=== PATIENT | female | born 1970 | race American Indian/Alaskan Native ===

== ENCOUNTER 2017-12-12 09:44 | Inpatient (IN) | payer BC ==
[2017-12-12] MEDS ORDERED: NACL 0.9% 1000 ML 1,000 ML IV ONE ×2 (10:01→12:56)
[2017-12-12 10:43] LABS: Hematocrit 40.5 % (30.3-42.9); Hemoglobin 13.3 gm/dl (10.1-14.3); Mean Corpuscular HGB Conc 33 % (30-34); Mean Corpuscular Hemoglobin 29 pg (28-32); Mean Corpuscular Volume 88 fl (79-97); Platelet Count 227 K/mm3 (140-440); Red Blood Count 4.63 M/mm3 (3.65-5.03); Red Cell Distribution Width 14.2 % (13.2-15.2)
[2017-12-12 11:06] LABS: Albumin 3.9 g/dL (3.9-5); Bilirubin,Direct 0.4 mg/dL (0-0.2)
[2017-12-12 11:07] LABS: Alanine Aminotransferase 9 units/L (7-56); BUN/Creatinine Ratio 16; Blood Urea Nitrogen 8 mg/dL (7-17); Calcium 9.8 mg/dL (8.4-10.2); Hemolysis Index 78
[2017-12-12 11:28] LABS: Band Neutrophils # (Manual) 0.5 K/mm3; Basophils % (Manual) 0 % (0.0-1.8); Eosinophils % (Manual) 0 % (0.0-4.3); Total Cells Counted 100
[2017-12-12 11:29] LABS: Anisocytosis 1+; Platelet Estimate Cons; Stomatocytes Few
[2017-12-12] MEDS ORDERED: ZOFRAN IV ONE (12:56)
[2017-12-12] MEDS ORDERED: MORPHINE IV ONE ×2 (12:56→16:34)
[2017-12-12] MEDS ORDERED: ZOSYN/NS 4.5GM/100ML 4.5 GM/100 ML VIAL IV SCH (13:00)
--- NOTE | 2017-12-12 13:01 | Emergency Department Report ---
ED Abdominal Pain HPI - General Chief Complaint: Abdominal Pain Stated Complaint: ABD PAIN Time Seen by Provider: 12/12/17 12:54 Source: patient, EMS Mode of arrival: Stretcher Limitations: No Limitations - History of Present Illness MD Complaint: abdominal pain -: Sudden Location: diffuse Radiation: chest Migration to: no migration Severity: severe Severity scale (0 -10): 10 Quality: aching, sharp Consistency: constant Improves With: nothing Worsens With: nothing Associated Symptoms: nausea, vomiting - Related Data Home Medications Medication Instructions Recorded Confirmed Last Taken Atorvastatin Calcium [Lipitor] 80 mg PO DAILY 12/12/17 12/12/17 Unknown Diltiazem HCl [Diltiazem 24Hr ER] 240 mg PO QDAY 12/12/17 12/12/17 Unknown Fenofibrate [Tricor] 145 mg PO QDAY 12/12/17 12/12/17 Unknown Allergies Allergy/AdvReac Type Severity Reaction Status Date / Time No Known Allergies Allergy Unverified 09/27/14 14:52 ED Review of Systems ROS: Stated complaint: ABD PAIN Other details as noted in HPI Comment: All other systems reviewed and negative Constitutional: denies: chills, fever Eyes: denies: eye pain, eye discharge ENT: denies: ear pain, dental pain Respiratory: denies: cough, orthopnea, shortness of breath Cardiovascular: chest pain. denies: palpitations, dyspnea on exertion, edema Endocrine: no symptoms reported Gastrointestinal: abdominal pain, nausea, vomiting. denies: diarrhea Genitourinary: denies: urgency, dysuria, frequency Musculoskeletal: denies: back pain, joint swelling Skin: denies: rash, lesions Neurological: denies: headache, weakness, numbness Psychiatric: denies: anxiety, depression Hematological/Lymphatic: denies: easy bleeding, easy bruising ED Past Medical Hx - Past Medical History Hx Hypertension: Yes Additional medical history: pancreatitis - Surgical History Additional Surgical History: Left knee surgery. 08/2014 - Social History Smoking Status: Current Every Day Smoker - Medications Home Medications: Home Medications Medication Instructions Recorded Confirmed Last Taken Type Atorvastatin Calcium [Lipitor] 80 mg PO DAILY 12/12/17 12/12/17 Unknown History Diltiazem HCl [Diltiazem 24Hr ER] 240 mg PO QDAY 12/12/17 12/12/17 Unknown History Fenofibrate [Tricor] 145 mg PO QDAY 12/12/17 12/12/17 Unknown History ED Physical Exam - General Limitations: No Limitations General appearance: alert, in distress - Head Head exam: Present: atraumatic, normocephalic, normal inspection - Eye Eye exam: Present: normal appearance, PERRL, EOMI Pupils: Present: normal accommodation - ENT ENT exam: Present: normal exam, normal orophraynx, mucous membranes moist - Neck Neck exam: Present: normal inspection, full ROM. Absent: tenderness - Respiratory Respiratory exam: Present: normal lung sounds bilaterally. Absent: respiratory distress, wheezes, rales, rhonchi - Cardiovascular Cardiovascular Exam: Present: normal rhythm, tachycardia, normal heart sounds - GI/Abdominal GI/Abdominal exam: Present: soft, distended, tenderness, guarding, rebound, hyperactive bowel sounds - Extremities Exam Extremities exam: Present: normal inspection, full ROM, normal capillary refill. Absent: tenderness - Back Exam Back exam: Present: normal inspection, full ROM. Absent: tenderness, CVA tenderness (L) - Neurological Exam Neurological exam: Present: alert, oriented X3, CN II-XII intact - Psychiatric Psychiatric exam: Present: normal affect, anxious - Skin Skin exam: Present: warm, dry, intact, normal color. 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 He will admit patient for further evaluation and management. ED Medical Decision Making - Lab Data Result diagrams: 12/13/17 04:40 12/13/17 04:40 - Radiology Data Radiology results: report reviewed, image reviewed - Medical Decision Making Diffused Abdominal Pain. Chest Pain. Nausea and Vomiting. Critical care attestation.: If time is entered above; I have spent that time in minutes in the direct care of this critically ill patient, excluding procedure time. ED Disposition Clinical Impression: Abdominal pain Qualifiers: Abdominal location: generalized Qualified Code(s): R10.84 - Generalized abdominal pain Leukocytosis (leucocytosis) Qualifiers: Leukocytosis type: unspecified Qualified Code(s): D72.829 - Elevated white blood cell count, unspecified Pancreatitis Qualifiers: Chronicity: acute Pancreatitis type: unspecified pancreatitis type Acute pancreatitis complication: unspecified Qualified Code(s): K85.90 - Acute pancreatitis without necrosis or infection, unspecified Disposition: 09 OP ADMIT IP TO THIS HOSP Is pt being admited?: Yes Does the pt Need Aspirin: Yes Condition: Stable
[2017-12-12 13:31] LABS: INR 0.99 (0.87-1.13)
--- NOTE | 2017-12-12 14:04 | XRay Report ---
AP CHEST: HISTORY: chest pain AP view of the chest demonstrates a normal mediastinal and cardiac contour with clear lungs and normal bony and soft tissue structures. IMPRESSION: Unremarkable AP chest.
[2017-12-12] MEDS ORDERED: BABY ASPIRIN PO ONE (14:10)
[2017-12-12] MEDS ORDERED: PROTONIX IV ONE ×2 (14:11→16:24)
[2017-12-12 14:34] LABS: Bacteria,Urine 1+ /HPF (Negative); Bilirubin,Urine NEG (Negative); Blood,Urine NEG (Negative); Color,Urine Amber (Yellow); Granular Casts,Urine 4 /LPF; Mucus,Urine 3+ /HPF; White Blood Cell Casts,Urine 4 /LPF
--- NOTE | 2017-12-12 15:44 | History and Physical Report ---
History of Present Illness Chief complaint: My stomach hurts, and my head hurts History of present illness: 47 YO Female with HTN, Chronic Pancreatitis, Nicotine Dependence, presents to ED for evaluation. Pt states that she has experienced Abdominal pain for the past 3 days with worsening symptoms over the past 2 days, as well as headache for the past 2 days. Pt states that abdominal pain is 10/10, diffuse, constant, worsened with eating, no alleviating factors. Pt acknowledges nausea and two episodes of vomiting. Pt also complains of 5/10 frontal headache. Pt denies fever, chills, CP, Palpitations, Trauma, BRBPR, hematemesis or recent ill contacts, or ingestion of food/water from new or different sources. Pt seen and evaluated in ED and found to have Acute Pancreatitis, Sepsis, and well as lactic acidosis. Pt admitted to medical floor. Past History Past Medical History: hypertension Past Surgical History: Other (knee surgery) Social history: , lives with family, smoking Family history: hypertension Medications and Allergies Allergies Allergy/AdvReac Type Severity Reaction Status Date / Time No Known Allergies Allergy Unverified 09/27/14 14:52 Home Medications Medication Instructions Recorded Confirmed Last Taken Type Atorvastatin Calcium [Lipitor] 80 mg PO DAILY 12/12/17 12/12/17 Unknown History Diltiazem HCl [Diltiazem 24Hr ER] 240 mg PO QDAY 12/12/17 12/12/17 Unknown History Fenofibrate [Tricor] 145 mg PO QDAY 12/12/17 12/12/17 Unknown History Active Meds: Active Medications Piperacillin Sod/Tazobactam Sod (Zosyn/Ns 4.5gm/100ml) 4.5 gm in 100 mls @ 200 mls/hr IV ONCE LEELEE Review of Systems Constitutional: no weight loss, no weight gain, no fever, no chills Ears, nose, mouth and throat: no ear pain, no ear discharge, no decreased hearing Breasts: no change in shape, no swelling, no mass Cardiovascular: no chest pain, no palpitations, no syncope, no lightheadedness Respiratory: no cough, no cough with sputum, no excessive sputum, no hemoptysis Gastrointestinal: abdominal pain, nausea, vomiting, no constipation, no melena, no hematochezia, no loss of appetite, no early satiety Genitourinary Female: no pelvic pain, no flank pain, no menorrhagia, no dysuria , no urinary frequency, no urgency Rectal: no pain, no incontinence, no bleeding Musculoskeletal: no neck stiffness, no neck pain, no shooting arm pain, no arm numbness/tingling Integumentary: no pruritis, no sores, no jaundice, no boils Neurological: no transient paralysis, no weakness, no tingling, no tremors Psychiatric: no memory loss, no sleep disturbances, no hypersomnia, no change in appetite, no depression, no anhedonia Endocrine: no cold intolerance, no heat intolerance, no excessive thirst, no polydipsia, no polyuria Hematologic/Lymphatic: no easy bruising, no easy bleeding Allergic/Immunologic: no urticaria, no allergic rhinitis, no wheezing, no persistent infections Exam - Constitutional Vitals: Temp Pulse Resp BP Pulse Ox 98.1 F 100 H 18 154/108 100 12/12/17 09:56 12/12/17 09:56 12/12/17 13:42 12/12/17 09:56 12/12/17 09:56 General appearance: Present: mild distress - EENT Eyes: Present: PERRL ENT: hearing intact, clear oral mucosa, poor dentition - Neck Neck: Present: supple, normal ROM - Respiratory Respiratory effort: normal Respiratory: bilateral: CTA - Cardiovascular Rhythm: other (tachycardia) Heart Sounds: Present: S1 & S2. Absent: rub, click - Extremities Extremities: pulses symmetrical, No edema Peripheral Pulses: abnormal (capillary refill greater than 3.6 seconds) - Abdominal General gastrointestinal: Present: soft, tender, normal bowel sounds. Absent: mass Localized gastrointestinal: tender: diffuse Female genitourinary: Present: normal - Integumentary Integumentary: Present: clear, dry, clammy, decreased turgor - Musculoskeletal Musculoskeletal: generalized weakness - Psychiatric Psychiatric: appropriate mood/affect, intact judgment & insight - Neurologic Neurologic: CNII-XII intact, moves all extremities Results - Labs CBC & Chem 7: 12/13/17 04:40 12/13/17 04:40 Labs: Abnormal lab results 12/12/17 12/12/17 12/12/17 Range/Units 10:08 10:08 10:08 WBC 17.4 H (4.5-11.0) K/mm3 Seg Neuts % (Manual) 85.0 H (40.0-70.0) % Lymphocytes % (Manual) 10.0 L (13.4-35.0) % Seg Neutrophils # Man 14.8 H (1.8-7.7) K/mm3 Sodium 133 L (137-145) mmol/L Chloride 92.5 L (98-107) mmol/L Carbon Dioxide 20 L (22-30) mmol/L Creatinine 0.5 L (0.7-1.2) mg/dL Glucose 116 H (65-100) mg/dL Direct Bilirubin 0.4 H (0-0.2) mg/dL Total Protein 8.4 H (6.3-8.2) g/dL Lipase (13-60) units/L Ur Specific [place] (1.003-1.030) Urine WBC (Auto) (0.0-6.0) /HPF 12/12/17 12/12/17 Range/Units 13:08 13:30 WBC (4.5-11.0) K/mm3 Seg Neuts % (Manual) (40.0-70.0) % Lymphocytes % (Manual) (13.4-35.0) % Seg Neutrophils # Man (1.8-7.7) K/mm3 Sodium (137-145) mmol/L Chloride (98-107) mmol/L Carbon Dioxide (22-30) mmol/L Creatinine (0.7-1.2) mg/dL Glucose (65-100) mg/dL Direct Bilirubin (0-0.2) mg/dL Total Protein (6.3-8.2) g/dL Lipase 76 H (13-60) units/L Ur Specific [place] 1.034 H (1.003-1.030) Urine WBC (Auto) 10.0 H (0.0-6.0) /HPF Assessment and Plan - Patient Problems (1) Sepsis Current Visit: Yes Status: Acute Qualifiers: Sepsis type: sepsis due to unspecified organism Qualified Code(s): A41.9 - Sepsis, unspecified organism Plan to address problem: Sepsis protocol, IV antibiotic therapy, serial lactic acid, monitor uop q shift , blood cultures, urinalysis, chest x ray (2) Acidosis Current Visit: Yes Status: Acute Plan to address problem: Serial lactic acid, IVF resuscitation, treat sepsis (3) Nicotine dependence unspecified, with withdrawal Current Visit: Yes Status: Acute Qualifiers: Nicotine product type: cigarettes Qualified Code(s): F17.213 - Nicotine dependence, cigarettes, with withdrawal Plan to address problem: Smoking cessation counseling (4) Pancreatitis Current Visit: Yes Status: Acute Qualifiers: Chronicity: acute Pancreatitis type: unspecified pancreatitis type Acute pancreatitis complication: unspecified Qualified Code(s): K85.90 - Acute pancreatitis without necrosis or infection, unspecified Plan to address problem: CT Abdomen Pelvis, IVF resuscitation, empiric antibiotic therapy for possible early necrosis due to involvement of mesentery on CT abdomen and pelvis, bowel rest, pain control (5) DVT prophylaxis Current Visit: Yes Status: Acute Plan to address problem: SCD to BLE while in bed
[2017-12-12] MEDS ORDERED: SODIUM CHLORIDE FLUSH SYRINGE 10 ML IV PRN (15:45)
[2017-12-12] MEDS ORDERED: NACL 0.9% 1000 ML IV ONE (15:45)
[2017-12-12] MEDS: MORPHINE IV PRN ×2 (16:20→20:53)
--- NOTE | 2017-12-12 16:34 | Cat Scan Report ---
FINAL REPORT EXAM: CT HEAD/BRAIN WO CON HISTORY: headache TECHNIQUE: 2.5 millimeter axial images from the skullbase to the vertex. Comparison: None FINDINGS: Visualization of detail in portions of the brain is somewhat limited by motion artifact. There is no definite evidence of an acute intracranial process nor intracranial hemorrhage and no evidence of significant mass effect. However, subtle areas of edema in portions of the brain could be missed due to motion artifact. The ventricles are normal size. The visualized portions of the orbits, paranasal and mastoid sinuses are unremarkable. The bony structures are unremarkable in appearance. IMPRESSION: 1. Study degraded by motion artifact. 2. No definite evidence of an acute intracranial process. However, subtle areas of edema in portions of the brain could be missed due to artifact. If further imaging is required, MRI may be helpful.
--- NOTE | 2017-12-12 17:12 | Cat Scan Report ---
FINAL REPORT PROCEDURE: CT ABDOMEN PELVIS W CON TECHNIQUE: Computerized axial tomography of the abdomen and pelvis was performed after the IV injection of iodinated nonionic contrast. HISTORY: abdominal pain COMPARISON: No prior studies are available for comparison. FINDINGS: Lower Lung carroll: Small amount of dependent atelectasis visualized. No effusions are seen. Upper Abdomen: The liver, the gallbladder, the left adrenal gland in the spleen are unremarkable. There is a small nodular density in the right adrenal gland measuring 1.5 x 0.9 centimeters. This is indeterminate. This nodule does enhance however on the short delay still enhances to 62 Hounsfield units. Prior to the delayed the nodule enhanced to 94 Hounsfield units. Pancreatic head appears mildly diffusely edematous. No masses are seen. There is diffuse inflammatory change surrounding the pancreatic head with moderate amount of edema seen extending into the root of the mesentery, to the right and inferiorly to the pancreatic head along the anterior aspect of Gerota's fascia. Perinephric edematous change visualized bilaterally. Right side greater than left. Small amount of ascites is collected in the lower pelvis posteriorly. The appearance is consistent with acute pancreatitis. Recommend correlation with serum amylase and lipase levels. Small amount of ascites is collected along the edges of the spleen and inferior aspect of the liver. There is also mild edematous change projecting anterior aspect of left side of Gerota's fascia. Kidneys, Ureters and Urinary bladder: Subcentimeter, the 7.4 millimeter renal cortical cyst visualized on the right posteriorly. The kidneys, the ureters and urinary bladder otherwise are unremarkable. Retroperitoneum: Atherosclerotic changes are seen in the abdominal aorta and iliac arteries.. No aneurysm is visualized. Nonspecific subcentimeter lymph nodes are seen in the retroperitoneum. No pathologically enlarged lymph nodes are identified. Bowel: Mild diverticulosis seen in the left side of the colon and transverse colon without evidence of diverticulitis. Few diverticula are scattered in the right side of the colon as well. Normal-appearing appendix is seen in the right lower quadrant although partially surrounded by the inflammatory process extending from the pancreas. No evidence of bowel obstruction. No free intraperitoneal gas is seen. Reproductive organs: Uterus is unremarkable. Nonspecific 3.7 centimeters cystic area visualized in the left ovary. Slightly irregular cyst visualized in the right ovary measuring 2 centimeters. This may represent recently ruptured follicle. Other: No acute bony abnormalities are identified. IMPRESSION: Diffuse inflammatory process in the abdomen centered around the pancreas extending into the mesentery as described as well as a small amount of ascites. The appearance highly suggestive of acute pancreatitis. Recommend correlation with serum amylase and lipase levels. No pancreatic masses or pseudocysts visualized. Indeterminate nodular density right adrenal gland measuring 1.5 x 0.9 centimeters. This could represent an adenoma although not confirmed with this exam. Other masses are not excluded. Consider follow-up MRI for further evaluation. Small renal cortical cyst visualize right kidney. Mild colonic diverticulosis without evidence of diverticulitis. Nonspecific cystic change visualized in the ovaries. On the left there is a cyst measuring up to 3.7 centimeters. Consider follow-up exam in 6-8 weeks to ensure this resolves and there are no persistent cystic lesions present..
[2017-12-12] MEDS ORDERED: NACL 0.9% 1000 ML 1,000 ML ONE (17:56)
[2017-12-12] MEDS ORDERED: VANCOMYCIN 1,500 MG in NACL 0.9% 500 ML 500 ML IV ONE (18:00)
[2017-12-12] MEDS: TYLENOL PO PRN (18:53)
[2017-12-12] MEDS ORDERED: NACL 0.45% 2,000 ML IV SCH (21:00)
[2017-12-12] MEDS: ZOSYN/NS 4.5GM/100ML 4.5 GM/100 ML VIAL IV SCH (21:40)
[2017-12-12] MEDS: SODIUM CHLORIDE FLUSH SYRINGE 10 ML IV SCH (21:40)
[2017-12-12] MEDS ORDERED: FLAGYL 500 MG/100 ML 500 MG/100 ML BAG IV SCH (22:00)
[2017-12-12] MEDS: PEPCID IV SCH (22:06)
[2017-12-12] MEDS: FLAGYL PO SCH (22:13)
[2017-12-13] MEDS: MORPHINE IV PRN ×2 (03:44→09:51)
[2017-12-13] MEDS: NACL 0.45% 1000 ML 1,000 ML IV SCH ×2 (03:45→15:22)
[2017-12-13 05:45] LABS: Hematocrit 31.2 % (30.3-42.9); Hemoglobin 10.4 gm/dl (10.1-14.3); Mean Corpuscular HGB Conc 33 % (30-34); Mean Corpuscular Hemoglobin 29 pg (28-32); Mean Corpuscular Volume 87 fl (79-97); Platelet Count 171 K/mm3 (140-440); Red Blood Count 3.59 M/mm3 (3.65-5.03); Red Cell Distribution Width 13.7 % (13.2-15.2)
[2017-12-13] MEDS: FLAGYL PO SCH ×3 (05:47→21:47)
[2017-12-13] MEDS: ZOSYN/NS 4.5GM/100ML 4.5 GM/100 ML VIAL IV SCH ×3 (05:56→21:46)
[2017-12-13 06:08] LABS: BUN/Creatinine Ratio 12; Blood Urea Nitrogen 6 mg/dL (7-17)
[2017-12-13 06:09] LABS: Calcium 8.7 mg/dL (8.4-10.2); Hemolysis Index 5
[2017-12-13 07:13] LABS: Band Neutrophils # (Manual) 3.3 K/mm3; Basophils % (Manual) 0 % (0.0-1.8); Total Cells Counted 100
[2017-12-13 07:15] LABS: Anisocytosis 1+; Platelet Estimate Consistent w Auto; Stomatocytes Few
[2017-12-13] MEDS ORDERED: MAGNESIUM SULFATE IV ONE (08:24)
--- NOTE | 2017-12-13 08:24 | Progress Note ---
Assessment and Plan Assessment and plan: 47 YO Female with HTN, Chronic Pancreatitis, Nicotine Dependence, presents to ED for evaluation. Pt states that she has experienced Abdominal pain for the past 3 days with worsening symptoms over the past 2 days, as well as headache for the past 2 days. Pt states that abdominal pain is 10/10, diffuse, constant, worsened with eating, no alleviating factors. Pt acknowledges nausea and two episodes of vomiting. Pt also complains of 5/10 frontal headache. Pt denies fever, chills, CP, Palpitations, Trauma, BRBPR, hematemesis or recent ill contacts, or ingestion of food/water from new or different sources. Pt seen and evaluated in ED and found to have Acute Pancreatitis, Sepsis, and well as lactic acidosis. Pt admitted to medical floor. Sepsis Acute Cystitis Acute Pancreatitis Peritoneal irratation secondary to acute pancreatitis Tobacco dependance with Withdrawal EtOH abuse Metabolic acidosis- Improved Headache- now resolved plan * Continue supportive care, pain control * urine culture * Continue abx * Abdominal Ultrasound * Replace electrolytes * Consult GI * 15 MINS OF COUNSELLING FOR TOBACCO CESSATION and also on alcohol use * DVT/GI prophy History Interval history: Patient seen and examined this morning still with abdominal pain with forced him morphine is not helpful. Rates pain at 10 over 10 in intensity intermittent in nature. Otherwise no other adverse event reported by nursing staff. Hospitalist Physical - Physical exam Narrative exam: VITAL SIGNS: Reviewed. GENERAL: The patient appeared well nourished and normally developed. Vital signs as documented. HEAD: No signs of head trauma. EYES: Pupils are equal. Extraocular motions intact. EARS: Hearing grossly intact. MOUTH: Oropharynx is normal. NECK: No adenopathy, no JVD. CHEST: Chest with clear breath sounds bilaterally. No wheezes, rales, or rhonchi. CARDIAC: Regular rate and rhythm. S1 and S2, without murmurs, gallops, or rubs. VASCULAR: No Edema. Peripheral pulses normal and equal in all extremities. ABDOMEN: Soft, tender. No sign of distention. No rebound or guarding, and no masses palpated. Bowel Sounds normal. MUSCULOSKELETAL: Good range of motion of all major joints. Extremities without clubbing, cyanosis or edema. NEUROLOGIC EXAM: Alert and oriented x 3. No focal sensory or strength deficits. Speech normal. Follows commands. PSYCHIATRIC: Mood normal. SKIN: No rash or lesions. - Constitutional Vitals: Temp Pulse Resp BP Pulse Ox 98.5 F 97 H 17 135/72 100 12/13/17 00:46 12/13/17 00:46 12/13/17 04:14 12/13/17 00:46 12/13/17 00:46 General appearance: Present: mild distress Results - Labs CBC & Chem 7: 12/13/17 04:40 12/13/17 04:40 Labs: Laboratory Last Values WBC 13.7 K/mm3 (4.5-11.0) H 12/13/17 04:40 RBC 3.59 M/mm3 (3.65-5.03) L 12/13/17 04:40 Hgb 10.4 gm/dl (10.1-14.3) 12/13/17 04:40 Hct 31.2 % (30.3-42.9) D 12/13/17 04:40 MCV 87 fl (79-97) 12/13/17 04:40 MCH 29 pg (28-32) 12/13/17 04:40 MCHC 33 % (30-34) 12/13/17 04:40 RDW 13.7 % (13.2-15.2) 12/13/17 04:40 Plt Count 171 K/mm3 (140-440) 12/13/17 04:40 Add Manual Diff Complete 12/13/17 04:40 Total Counted 100 12/13/17 04:40 Seg Neuts % (Manual) 48.0 % (40.0-70.0) 12/13/17 04:40 Band Neutrophils % 24.0 % 12/13/17 04:40 Lymphocytes % (Manual) 16.0 % (13.4-35.0) 12/13/17 04:40 Reactive Lymphs % (Man) 0 % 12/13/17 04:40 Monocytes % (Manual) 10.0 % (0.0-7.3) H 12/13/17 04:40 Eosinophils % (Manual) 2.0 % (0.0-4.3) 12/13/17 04:40 Basophils % (Manual) 0 % (0.0-1.8) 12/13/17 04:40 Metamyelocytes % 0 % 12/13/17 04:40 Myelocytes % 0 % 12/13/17 04:40 Promyelocytes % 0 % 12/13/17 04:40 Blast Cells % 0 % 12/13/17 04:40 Nucleated RBC % Not Reportable 12/13/17 04:40 Seg Neutrophils # Man 6.6 K/mm3 (1.8-7.7) 12/13/17 04:40 Band Neutrophils # 3.3 K/mm3 12/13/17 04:40 Lymphocytes # (Manual) 2.2 K/mm3 (1.2-5.4) 12/13/17 04:40 Abs React Lymphs (Man) 0.0 K/mm3 12/13/17 04:40 Monocytes # (Manual) 1.4 K/mm3 (0.0-0.8) H 12/13/17 04:40 Eosinophils # (Manual) 0.3 K/mm3 (0.0-0.4) 12/13/17 04:40 Basophils # (Manual) 0.0 K/mm3 (0.0-0.1) 12/13/17 04:40 Metamyelocytes # 0.0 K/mm3 12/13/17 04:40 Myelocytes # 0.0 K/mm3 12/13/17 04:40 Promyelocytes # 0.0 K/mm3 12/13/17 04:40 Blast Cells # 0.0 K/mm3 12/13/17 04:40 WBC Morphology Not Reportable 12/13/17 04:40 Hypersegmented Neuts Not Reportable 12/13/17 04:40 Hyposegmented Neuts Not Reportable 12/13/17 04:40 Hypogranular Neuts Not Reportable 12/13/17 04:40 Smudge Cells Not Reportable 12/13/17 04:40 Toxic Granulation Not Reportable 12/13/17 04:40 Toxic Vacuolation Not Reportable 12/13/17 04:40 Dohle Bodies Not Reportable 12/13/17 04:40 Pelger-Huet Anomaly Not Reportable 12/13/17 04:40 Mitali Rods Not Reportable 12/13/17 04:40 Platelet Estimate Consistent w auto 12/13/17 04:40 Clumped Platelets Not Reportable 12/13/17 04:40 Plt Clumps, EDTA Not Reportable 12/13/17 04:40 Large Platelets Not Reportable 12/13/17 04:40 Giant Platelets Not Reportable 12/13/17 04:40 Platelet Satelliting Not Reportable 12/13/17 04:40 Plt Morphology Comment Not Reportable 12/13/17 04:40 RBC Morphology Not Reportable 12/13/17 04:40 Dimorphic RBCs Not Reportable 12/13/17 04:40 Polychromasia Not Reportable 12/13/17 04:40 Hypochromasia Not Reportable 12/13/17 04:40 Poikilocytosis Not Reportable 12/13/17 04:40 Anisocytosis 1+ 12/13/17 04:40 Microcytosis Not Reportable 12/13/17 04:40 Macrocytosis Not Reportable 12/13/17 04:40 Spherocytes Not Reportable 12/13/17 04:40 Pappenheimer Bodies Not Reportable 12/13/17 04:40 Sickle Cells Not Reportable 12/13/17 04:40 Target Cells Not Reportable 12/13/17 04:40 Tear Drop Cells Not Reportable 12/13/17 04:40 Ovalocytes Not Reportable 12/13/17 04:40 Stomatocytes Few 12/13/17 04:40 Helmet Cells Not Reportable 12/13/17 04:40 Reyes-Isabela Bodies Not Reportable 12/13/17 04:40 [place] Rings Not Reportable 12/13/17 04:40 Margo Cells Not Reportable 12/13/17 04:40 Bite Cells Not Reportable 12/13/17 04:40 Crenated Cell Not Reportable 12/13/17 04:40 Elliptocytes Not Reportable 12/13/17 04:40 Acanthocytes (Spur) Not Reportable 12/13/17 04:40 Rouleaux Not Reportable 12/13/17 04:40 Hemoglobin C Crystals Not Reportable 12/13/17 04:40 Schistocytes Not Reportable 12/13/17 04:40 Malaria parasites Not Reportable 12/13/17 04:40 Luciano Bodies Not Reportable 12/13/17 04:40 Hem Pathologist Commnt No 12/13/17 04:40 PT 13.6 Sec. (12.2-14.9) 12/12/17 13:08 INR 0.99 (0.87-1.13) 12/12/17 13:08 APTT 32.0 Sec. (24.2-36.6) 12/12/17 13:08 Sodium 134 mmol/L (137-145) L 12/13/17 04:40 Potassium 3.2 mmol/L (3.6-5.0) L 12/13/17 04:40 Chloride 99.2 mmol/L (98-107) 12/13/17 04:40 Carbon Dioxide 22 mmol/L (22-30) 12/13/17 04:40 Anion Gap 16 mmol/L 12/13/17 04:40 BUN 6 mg/dL (7-17) L 12/13/17 04:40 Creatinine 0.5 mg/dL (0.7-1.2) L 12/13/17 04:40 Estimated GFR > 60 ml/min 12/13/17 04:40 BUN/Creatinine Ratio 12 % 12/13/17 04:40 Glucose 104 mg/dL (65-100) H 12/13/17 04:40 Lactic Acid 0.80 mmol/L (0.7-2.0) 12/12/17 20:55 Calcium 8.7 mg/dL (8.4-10.2) 12/13/17 04:40 Total Bilirubin 1.10 mg/dL (0.1-1.2) 12/12/17 10:08 Direct Bilirubin 0.4 mg/dL (0-0.2) H 12/12/17 10:08 Indirect Bilirubin 0.7 mg/dL 12/12/17 10:08 AST 18 units/L (5-40) 12/12/17 10:08 ALT 9 units/L (7-56) 12/12/17 10:08 Alkaline Phosphatase 72 units/L (35-129) 12/12/17 10:08 Troponin T < 0.010 ng/mL (0.00-0.029) 12/12/17 13:08 NT-Pro-B Natriuret Pep 100.0 pg/mL (0-450) 12/12/17 13:08 Total Protein 8.4 g/dL (6.3-8.2) H 12/12/17 10:08 Albumin 4.0 g/dL (3.9-5) 12/12/17 10:08 Albumin/Globulin Ratio 0.9 % 12/12/17 10:08 Lipase 76 units/L (13-60) H 12/12/17 13:08 HCG, Qual Negative (Negative) 12/12/17 10:08 Urine Color Sara (Yellow) 12/12/17 13:30 Urine Turbidity Clear (Clear) 12/12/17 13:30 Urine pH 5.0 (5.0-7.0) 12/12/17 13:30 Ur Specific [place] 1.034 (1.003-1.030) H 12/12/17 13:30 Urine Protein 100 mg/dl mg/dL (Negative) 12/12/17 13:30 Urine Glucose (UA) 50 mg/dL (Negative) 12/12/17 13:30 Urine Ketones Neg mg/dL (Negative) 12/12/17 13:30 Urine Blood Neg (Negative) 12/12/17 13:30 Urine Nitrite Neg (Negative) 12/12/17 13:30 Urine Bilirubin Neg (Negative) 12/12/17 13:30 Urine Urobilinogen 4.0 mg/dL (<2.0) 12/12/17 13:30 Ur Leukocyte Esterase Neg (Negative) 12/12/17 13:30 Urine WBC (Auto) 10.0 /HPF (0.0-6.0) H 12/12/17 13:30 Urine RBC (Auto) 9.0 /HPF (0.0-6.0) 12/12/17 13:30 U Epithel Cells (Auto) 8.0 /HPF (0-13.0) 12/12/17 13:30 Urine Bacteria (Auto) 1+ /HPF (Negative) 12/12/17 13:30 Granular Casts 4 /LPF 12/12/17 13:30 WBC Casts 4 /LPF 12/12/17 13:30 Urine Mucus 3+ /HPF 12/12/17 13:30 - Imaging and Cardiology CT scan - abdomen: image reviewed (pancreatic head edema.)
[2017-12-13] MEDS ORDERED: MAGNESIUM SULFATE 1 GM in NACL 0.9% 50 ML IV ONE (09:00)
[2017-12-13] MEDS: CARDIZEM CD PO SCH (09:52)
[2017-12-13] MEDS: PEPCID IV SCH (09:52)
[2017-12-13] MEDS: TRICOR PO SCH (09:52)
[2017-12-13] MEDS: KCL 10MEQ/100ML 10 MEQ/100 ML BAG IV SCH ×4 (09:53→15:03)
[2017-12-13] MEDS: SODIUM CHLORIDE FLUSH SYRINGE 10 ML IV SCH ×2 (09:53→21:47)
[2017-12-13] MEDS ORDERED: NON-FORMULARY (Atorvastatin Calcium [Lipitor] 80 MG) PO SCH (10:00)
[2017-12-13] MEDS: ZOFRAN IV PRN (11:32)
[2017-12-13] MEDS: TYLENOL PO PRN (11:32)
--- NOTE | 2017-12-13 13:32 | Ultrasound Report ---
Abdominal sonogram: History: Gallstones, pancreatitis. Findings: Normal aorta. Coarse echogenic liver probably fatty liver. No intrahepatic or extrahepatic duct dilatation. Common bile duct diameter is 4.9 mm. Gallbladder wall thickness 2.2 mm. Pericholecystic fluid noted. Minimal thick bile or sludge. Right kidney 12 x 4.2 x 5.1 cm. Cortical thickness 1.7 cm. Left kidney 11.6 x 5.1 x 5.1 cm. Cortical thickness is 1.0 cm. Normal spleen measures 8.6 cm. Normal pancreas. Impression: Thick bile or sludge in the gallbladder suspected kathia cholecystic fluid. No calculi. Coarse liver echogenicity probably related to fatty liver.
--- NOTE | 2017-12-13 14:42 | Gastroenterology Consultation ---
History of Present Illness - Reason for Consult Consult date: 12/13/17 pancreatitis Requesting physician: ALEX MONTES - History of Present Illness Ms Regan is a 47 y/o female who presents with a 3 day hx of abdominal pain with N/V and associated headache. CT on admission does note diffuse edema around the pancreatic head extending into the mesentery. She states she was told she had pancreatitis several years ago but does not recall the etiology. She drinks the equivalent of a wine cooler each day and more on vacation. US with notable sludge in GB and thickened wall. LFTS are WNL. Lipase 76. WBC elevated >17K on admission and patient was placed under sepsis protocol. Past History Past Medical History: hypertension Past Surgical History: Other (knee surgery) Social history: , lives with family, smoking Family history: hypertension Medications and Allergies Allergies Allergy/AdvReac Type Severity Reaction Status Date / Time No Known Allergies Allergy Unverified 09/27/14 14:52 Home Medications Medication Instructions Recorded Confirmed Last Taken Type Atorvastatin Calcium [Lipitor] 80 mg PO DAILY 12/12/17 12/12/17 Unknown History Diltiazem HCl [Diltiazem 24Hr ER] 240 mg PO QDAY 12/12/17 12/12/17 Unknown History Fenofibrate [Tricor] 145 mg PO QDAY 12/12/17 12/12/17 Unknown History Active Meds: Active Medications Acetaminophen (Tylenol) 650 mg PO Q4H PRN PRN Reason: Pain MILD(1-3)/Fever >100.5/[place] Last Admin: 12/13/17 11:32 Dose: 650 mg Atorvastatin Calcium (Lipitor) 80 mg PO QHS [facility] Last Admin: 12/12/17 22:06 Dose: 80 mg Diltiazem HCl (Cardizem Cd) 240 mg PO QDAY [facility] Last Admin: 12/13/17 09:52 Dose: 240 mg Famotidine (Pepcid) 20 mg PO BID [facility] Fenofibrate (Tricor) 145 mg PO QDAY [facility] Last Admin: 12/13/17 09:52 Dose: 145 mg Hydromorphone HCl (Dilaudid) 0.5 mg IV Q3H PRN PRN Reason: Pain , Severe (7-10) Piperacillin Sod/Tazobactam Sod (Zosyn/Ns 4.5gm/100ml) 4.5 gm in 100 mls @ 200 mls/hr IV Q8HR [facility]; Protocol Last Admin: 12/13/17 05:56 Dose: 200 mls/hr Sodium Chloride (Nacl 0.45% 1000 Ml) 1,000 mls @ 125 mls/hr IV DIRECT [facility]EE[facility] Stop: 12/14/17 10:59 Last Admin: 12/13/17 03:45 Dose: 125 mls/hr Metronidazole (Flagyl) 500 mg PO Q8HR [facility] Last Admin: 12/13/17 05:47 Dose: 500 mg Ondansetron HCl (Zofran) 4 mg IV Q8H PRN PRN Reason: Nausea And Vomiting Last Admin: 12/13/17 11:32 Dose: 4 mg Sodium Chloride (Sodium Chloride Flush Syringe 10 Ml) 10 ml IV BID [facility] Last Admin: 12/13/17 09:53 Dose: 10 ml Sodium Chloride (Sodium Chloride Flush Syringe 10 Ml) 10 ml IV PRN PRN PRN Reason: LINE FLUSH Review of Systems - Review of Systems All systems: negative Constitutional: other (headache) Gastrointestinal: abdominal pain, nausea, vomiting Exam - Constitutional Vital Signs: Temp Pulse Resp BP Pulse Ox 99.0 F 86 20 121/77 99 12/13/17 12:30 12/13/17 12:30 12/13/17 12:30 12/13/17 12:30 12/13/17 12:30 General appearance: no acute distress - EENT Eyes: EOM intact ENT: hearing intact - Neck Neck: supple - Respiratory Respiratory effort: normal Respiratory: bilateral: CTA - Cardiovascular Rhythm: regular Heart Sounds: Present: S1 & S2 - Gastrointestinal General gastrointestinal: Present: soft, tender (TTP mid / lower epigastric area ) - Integumentary Integumentary: Present: warm, dry - Neurologic Neurological: alert and oriented x3 - Psychiatric Psychiatric: appropriate mood/affect, cooperative - Labs CBC & Chem 7: 12/13/17 04:40 12/13/17 04:40 Lab Results: Laboratory Results - last 24 hr 12/12/17 12/12/17 12/12/17 13:08 13:08 13:30 WBC RBC Hgb Hct MCV MCH MCHC RDW Plt Count Add Manual Diff Total Counted Seg Neuts % (Manual) Band Neutrophils % Lymphocytes % (Manual) Reactive Lymphs % (Man) Monocytes % (Manual) Eosinophils % (Manual) Basophils % (Manual) Metamyelocytes % Myelocytes % Promyelocytes % Blast Cells % Nucleated RBC % Seg Neutrophils # Man Band Neutrophils # Lymphocytes # (Manual) Abs React Lymphs (Man) Monocytes # (Manual) Eosinophils # (Manual) Basophils # (Manual) Metamyelocytes # Myelocytes # Promyelocytes # Blast Cells # WBC Morphology Hypersegmented Neuts Hyposegmented Neuts Hypogranular Neuts Smudge Cells Toxic Granulation Toxic Vacuolation Dohle Bodies Pelger-Huet Anomaly Mitali Rods Platelet Estimate Clumped Platelets Plt Clumps, EDTA Large Platelets Giant Platelets Platelet Satelliting Plt Morphology Comment RBC Morphology Dimorphic RBCs Polychromasia Hypochromasia Poikilocytosis Anisocytosis Microcytosis Macrocytosis Spherocytes Pappenheimer Bodies Sickle Cells Target Cells Tear Drop Cells Ovalocytes Stomatocytes Helmet Cells Re[place] Bodies Grethel Rings Media Cells Bite Cells Crenated Cell Elliptocytes Acanthocytes (Spur) Rouleaux Hemoglobin C Crystals Schistocytes Malaria parasites Luciano Bodies Hem Pathologist Commnt Sodium Potassium Chloride Carbon Dioxide Anion Gap BUN Creatinine Estimated GFR BUN/Creatinine Ratio Glucose Lactic Acid Calcium Troponin T < 0.010 NT-Pro-B Natriuret Pep 100.0 Lipase 76 H Urine Color Sara Urine Turbidity Clear Urine pH 5.0 Ur Specific [place] 1.034 H Urine Protein 100 mg/dl Urine Glucose (UA) 50 Urine Ketones Neg Urine Blood Neg Urine Nitrite Neg Urine Urobilinogen 4.0 Ur Leukocyte Esterase Neg Urine WBC (Auto) 10.0 H Urine Bacteria (Auto) 1+ Granular Casts 4 WBC Casts 4 Urine Mucus 3+ 12/12/17 12/12/17 12/12/17 15:54 19:33 20:55 WBC RBC Hgb Hct MCV MCH MCHC RDW Plt Count Add Manual Diff Total Counted Seg Neuts % (Manual) Band Neutrophils % Lymphocytes % (Manual) Reactive Lymphs % (Man) Monocytes % (Manual) Eosinophils % (Manual) Basophils % (Manual) Metamyelocytes % Myelocytes % Promyelocytes % Blast Cells % Nucleated RBC % Seg Neutrophils # Man Band Neutrophils # Lymphocytes # (Manual) Abs React Lymphs (Man) Monocytes # (Manual) Eosinophils # (Manual) Basophils # (Manual) Metamyelocytes # Myelocytes # Promyelocytes # Blast Cells # WBC Morphology Hypersegmented Neuts Hyposegmented Neuts Hypogranular Neuts Smudge Cells Toxic Granulation Toxic Vacuolation Dohle Bodies Pelger-Huet Anomaly Mitali Rods Platelet Estimate Clumped Platelets Plt Clumps, EDTA Large Platelets Giant Platelets Platelet Satelliting Plt Morphology Comment RBC Morphology Dimorphic RBCs Polychromasia Hypochromasia Poikilocytosis Anisocytosis Microcytosis Macrocytosis Spherocytes Pappenheimer Bodies Sickle Cells Target Cells Tear Drop Cells Ovalocytes Stomatocytes Helmet Cells [place] Bodies Grethel Rings Media Cells Bite Cells Crenated Cell Elliptocytes Acanthocytes (Spur) Rouleaux Hemoglobin C Crystals Schistocytes Malaria parasites Luciano Bodies Hem Pathologist Commnt Sodium Potassium Chloride Carbon Dioxide Anion Gap BUN Creatinine Estimated GFR BUN/Creatinine Ratio Glucose Lactic Acid 2.30 H* 1.00 0.80 Calcium Troponin T NT-Pro-B Natriuret Pep Lipase Urine Color Urine Turbidity Urine pH Ur Specific [place] Urine Protein Urine Glucose (UA) Urine Ketones Urine Blood Urine Nitrite Urine Urobilinogen Ur Leukocyte Esterase Urine WBC (Auto) Urine Bacteria (Auto) Granular Casts WBC Casts Urine Mucus 12/13/17 12/13/17 04:40 04:40 WBC 13.7 H RBC 3.59 L Hgb 10.4 Hct 31.2 D MCV 87 MCH 29 MCHC 33 RDW 13.7 Plt Count 171 Add Manual Diff Complete Total Counted 100 Seg Neuts % (Manual) 48.0 Band Neutrophils % 24.0 Lymphocytes % (Manual) 16.0 Reactive Lymphs % (Man) 0 Monocytes % (Manual) 10.0 H Eosinophils % (Manual) 2.0 Basophils % (Manual) 0 Metamyelocytes % 0 Myelocytes % 0 Promyelocytes % 0 Blast Cells % 0 Nucleated RBC % Not Reportable Seg Neutrophils # Man 6.6 Band Neutrophils # 3.3 Lymphocytes # (Manual) 2.2 Abs React Lymphs (Man) 0.0 Monocytes # (Manual) 1.4 H Eosinophils # (Manual) 0.3 Basophils # (Manual) 0.0 Metamyelocytes # 0.0 Myelocytes # 0.0 Promyelocytes # 0.0 Blast Cells # 0.0 WBC Morphology Not Reportable Hypersegmented Neuts Not Reportable Hyposegmented Neuts Not Reportable Hypogranular Neuts Not Reportable Smudge Cells Not Reportable Toxic Granulation Not Reportable Toxic Vacuolation Not Reportable Dohle Bodies Not Reportable Pelger-Huet Anomaly Not Reportable Mitali Rods Not Reportable Platelet Estimate Consistent w auto Clumped Platelets Not Reportable Plt Clumps, EDTA Not Reportable Large Platelets Not Reportable Giant Platelets Not Reportable Platelet Satelliting Not Reportable Plt Morphology Comment Not Reportable RBC Morphology Not Reportable Dimorphic RBCs Not Reportable Polychromasia Not Reportable Hypochromasia Not Reportable Poikilocytosis Not Reportable Anisocytosis 1+ Microcytosis Not Reportable Macrocytosis Not Reportable Spherocytes Not Reportable Pappenheimer Bodies Not Reportable Sickle Cells Not Reportable Target Cells Not Reportable Tear Drop Cells Not Reportable Ovalocytes Not Reportable Stomatocytes Few Helmet Cells Not Reportable Re[place] Bodies Not Reportable Grethel Rings Not Reportable Margo Cells Not Reportable Bite Cells Not Reportable Crenated Cell Not Reportable Elliptocytes Not Reportable Acanthocytes (Spur) Not Reportable Rouleaux Not Reportable Hemoglobin C Crystals Not Reportable Schistocytes Not Reportable Malaria parasites Not Reportable Luciano Bodies Not Reportable Hem Pathologist Commnt No Sodium 134 L Potassium 3.2 L Chloride 99.2 Carbon Dioxide 22 Anion Gap 16 BUN 6 L Creatinine 0.5 L Estimated GFR > 60 BUN/Creatinine Ratio 12 Glucose 104 H Lactic Acid Calcium 8.7 Troponin T NT-Pro-B Natriuret Pep Lipase Urine Color Urine Turbidity Urine pH Ur Specific [place] Urine Protein Urine Glucose (UA) Urine Ketones Urine Blood Urine Nitrite Urine Urobilinogen Ur Leukocyte Esterase Urine WBC (Auto) Urine Bacteria (Auto) Granular Casts WBC Casts Urine Mucus Assessment and Plan 1. Acute Pancreatitis -Per CT diffuse edema surrounding pancreas into mesentery -US with GB sludge and thickened wall -LFTS are WNL -WBC trending down from 17K to 13K -Check Lipid panel, IgG4, CRP -Likely related to ETOH use -NPO for now -Supportive care with IVF and anti-emetics. -Lactic acid now normal
[2017-12-13 16:20] LABS: C-Reactive Protein 27.7 mg/dL (0.00-1.30)
[2017-12-13] MEDS: DILAUDID IV PRN ×2 (16:54→20:04)
[2017-12-13] MEDS: PEPCID PO SCH (21:47)
[2017-12-14] MEDS: NACL 0.45% 1000 ML 1,000 ML IV SCH ×2 (00:01→06:16)
[2017-12-14] MEDS: DILAUDID IV PRN ×7 (00:15→21:44)
[2017-12-14 05:40] LABS: BUN/Creatinine Ratio 8; Blood Urea Nitrogen 4 mg/dL (7-17); Calcium 8.5 mg/dL (8.4-10.2); Chol/HDL Ratio 17.16 %; HDL Cholesterol 24 mg/dL (40-59); Hemolysis Index 2; LDL Cholesterol,Direct 99 mg/dL (50-130)
[2017-12-14 05:45] LABS: Hematocrit 29.4 % (30.3-42.9); Hemoglobin 9.7 gm/dl (10.1-14.3); Mean Corpuscular HGB Conc 33 % (30-34); Mean Corpuscular Hemoglobin 29 pg (28-32); Mean Corpuscular Volume 87 fl (79-97); Platelet Count 208 K/mm3 (140-440); Red Blood Count 3.38 M/mm3 (3.65-5.03)
[2017-12-14 05:47] LABS: Alanine Aminotransferase < 5 units/L (7-56)
[2017-12-14] MEDS: ZOSYN/NS 4.5GM/100ML 4.5 GM/100 ML VIAL IV SCH ×3 (06:15→21:44)
[2017-12-14] MEDS: FLAGYL PO SCH ×3 (06:15→21:45)
[2017-12-14] MEDS: ZOFRAN IV PRN (09:23)
[2017-12-14] MEDS: SODIUM CHLORIDE FLUSH SYRINGE 10 ML IV SCH (09:26)
[2017-12-14] MEDS: TRICOR PO SCH (09:26)
[2017-12-14] MEDS: PEPCID PO SCH ×2 (09:26→21:44)
[2017-12-14] MEDS: CARDIZEM CD PO SCH (09:26)
[2017-12-14] MEDS ORDERED: D50W (25GM) Syringe IV PRN (09:30)
[2017-12-14] MEDS ORDERED: HumuLIN R 100 UNITS in NACL 0.9% 99 ML IV SCH (10:00)
[2017-12-14] MEDS: D5/0.45NS 1,000 ML IV SCH ×2 (10:20→18:03)
--- NOTE | 2017-12-14 11:02 | Progress Note ---
Assessment and Plan Assessment and plan: 47 YO Female with HTN, Chronic Pancreatitis, Nicotine Dependence, presents to ED for evaluation. Pt states that she has experienced Abdominal pain for the past 3 days with worsening symptoms over the past 2 days, as well as headache for the past 2 days. Pt states that abdominal pain is 10/10, diffuse, constant, worsened with eating, no alleviating factors. Pt acknowledges nausea and two episodes of vomiting. Pt also complains of 5/10 frontal headache. Pt denies fever, chills, CP, Palpitations, Trauma, BRBPR, hematemesis or recent ill contacts, or ingestion of food/water from new or different sources. Pt seen and evaluated in ED and found to have Acute Pancreatitis, Sepsis, and well as lactic acidosis. Pt admitted to medical floor. Sepsis Acute Cystitis Acute Pancreatitis Hypertriglycerdemia Peritoneal irritation secondary to acute pancreatitis Tobacco dependance with Withdrawal EtOH abuse Metabolic acidosis- Improved Headache- now resolved plan * Continue supportive care, pain control * urine culture * Insulin drip x 5 hrs. Discussed with nursing staff * D5NS * Continue abx * Abdominal Ultrasound * Replace electrolytes * Consult GI * 15 MINS OF COUNSELLING FOR TOBACCO CESSATION and also on alcohol use * DVT/GI prophy History Interval history: Patient seen and examined, Adominal pain not as intense but still present. patient clarifies that she has been on vacation currently and has been using some etoh Hospitalist Physical - Physical exam Narrative exam: VITAL SIGNS: Reviewed. GENERAL: The patient appeared well nourished and normally developed. Vital signs as documented. HEAD: No signs of head trauma. EYES: Pupils are equal. Extraocular motions intact. EARS: Hearing grossly intact. MOUTH: Oropharynx is normal. NECK: No adenopathy, no JVD. CHEST: Chest with clear breath sounds bilaterally. No wheezes, rales, or rhonchi. CARDIAC: Regular rate and rhythm. S1 and S2, without murmurs, gallops, or rubs. VASCULAR: No Edema. Peripheral pulses normal and equal in all extremities. ABDOMEN: Soft, tender. No sign of distention. No rebound or guarding, and no masses palpated. Bowel Sounds normal. MUSCULOSKELETAL: Good range of motion of all major joints. Extremities without clubbing, cyanosis or edema. NEUROLOGIC EXAM: Alert and oriented x 3. No focal sensory or strength deficits. Speech normal. Follows commands. PSYCHIATRIC: Mood normal. SKIN: No rash or lesions. - Constitutional Vitals: Temp Pulse Resp BP Pulse Ox 98.2 F 81 16 116/69 99 12/14/17 05:40 12/14/17 05:40 12/14/17 05:40 12/14/17 05:40 12/14/17 05:40 General appearance: Present: mild distress Results - Labs CBC & Chem 7: 12/14/17 04:34 12/14/17 04:34 Labs: Laboratory Last Values WBC 14.6 K/mm3 (4.5-11.0) H 12/14/17 04:34 RBC 3.38 M/mm3 (3.65-5.03) L 12/14/17 04:34 Hgb 9.7 gm/dl (10.1-14.3) L 12/14/17 04:34 Hct 29.4 % (30.3-42.9) L 12/14/17 04:34 MCV 87 fl (79-97) 12/14/17 04:34 MCH 29 pg (28-32) 12/14/17 04:34 MCHC 33 % (30-34) 12/14/17 04:34 RDW 14.0 % (13.2-15.2) 12/14/17 04:34 Plt Count 208 K/mm3 (140-440) 12/14/17 04:34 Add Manual Diff Complete 12/13/17 04:40 Total Counted 100 12/13/17 04:40 Seg Neuts % (Manual) 48.0 % (40.0-70.0) 12/13/17 04:40 Band Neutrophils % 24.0 % 12/13/17 04:40 Lymphocytes % (Manual) 16.0 % (13.4-35.0) 12/13/17 04:40 Reactive Lymphs % (Man) 0 % 12/13/17 04:40 Monocytes % (Manual) 10.0 % (0.0-7.3) H 12/13/17 04:40 Eosinophils % (Manual) 2.0 % (0.0-4.3) 12/13/17 04:40 Basophils % (Manual) 0 % (0.0-1.8) 12/13/17 04:40 Metamyelocytes % 0 % 12/13/17 04:40 Myelocytes % 0 % 12/13/17 04:40 Promyelocytes % 0 % 12/13/17 04:40 Blast Cells % 0 % 12/13/17 04:40 Nucleated RBC % Not Reportable 12/13/17 04:40 Seg Neutrophils # Man 6.6 K/mm3 (1.8-7.7) 12/13/17 04:40 Band Neutrophils # 3.3 K/mm3 12/13/17 04:40 Lymphocytes # (Manual) 2.2 K/mm3 (1.2-5.4) 12/13/17 04:40 Abs React Lymphs (Man) 0.0 K/mm3 12/13/17 04:40 Monocytes # (Manual) 1.4 K/mm3 (0.0-0.8) H 12/13/17 04:40 Eosinophils # (Manual) 0.3 K/mm3 (0.0-0.4) 12/13/17 04:40 Basophils # (Manual) 0.0 K/mm3 (0.0-0.1) 12/13/17 04:40 Metamyelocytes # 0.0 K/mm3 12/13/17 04:40 Myelocytes # 0.0 K/mm3 12/13/17 04:40 Promyelocytes # 0.0 K/mm3 12/13/17 04:40 Blast Cells # 0.0 K/mm3 12/13/17 04:40 WBC Morphology Not Reportable 12/13/17 04:40 Hypersegmented Neuts Not Reportable 12/13/17 04:40 Hyposegmented Neuts Not Reportable 12/13/17 04:40 Hypogranular Neuts Not Reportable 12/13/17 04:40 Smudge Cells Not Reportable 12/13/17 04:40 Toxic Granulation Not Reportable 12/13/17 04:40 Toxic Vacuolation Not Reportable 12/13/17 04:40 Dohle Bodies Not Reportable 12/13/17 04:40 Pelger-Huet Anomaly Not Reportable 12/13/17 04:40 Mitali Rods Not Reportable 12/13/17 04:40 Platelet Estimate Consistent w auto 12/13/17 04:40 Clumped Platelets Not Reportable 12/13/17 04:40 Plt Clumps, EDTA Not Reportable 12/13/17 04:40 Large Platelets Not Reportable 12/13/17 04:40 Giant Platelets Not Reportable 12/13/17 04:40 Platelet Satelliting Not Reportable 12/13/17 04:40 Plt Morphology Comment Not Reportable 12/13/17 04:40 RBC Morphology Not Reportable 12/13/17 04:40 Dimorphic RBCs Not Reportable 12/13/17 04:40 Polychromasia Not Reportable 12/13/17 04:40 Hypochromasia Not Reportable 12/13/17 04:40 Poikilocytosis Not Reportable 12/13/17 04:40 Anisocytosis 1+ 12/13/17 04:40 Microcytosis Not Reportable 12/13/17 04:40 Macrocytosis Not Reportable 12/13/17 04:40 Spherocytes Not Reportable 12/13/17 04:40 Pappenheimer Bodies Not Reportable 12/13/17 04:40 Sickle Cells Not Reportable 12/13/17 04:40 Target Cells Not Reportable 12/13/17 04:40 Tear Drop Cells Not Reportable 12/13/17 04:40 Ovalocytes Not Reportable 12/13/17 04:40 Stomatocytes Few 12/13/17 04:40 Helmet Cells Not Reportable 12/13/17 04:40 [place] Bodies Not Reportable 12/13/17 04:40 [place] Rings Not Reportable 12/13/17 04:40 Margo Cells Not Reportable 12/13/17 04:40 Bite Cells Not Reportable 12/13/17 04:40 Crenated Cell Not Reportable 12/13/17 04:40 Elliptocytes Not Reportable 12/13/17 04:40 Acanthocytes (Spur) Not Reportable 12/13/17 04:40 Rouleaux Not Reportable 12/13/17 04:40 Hemoglobin C Crystals Not Reportable 12/13/17 04:40 Schistocytes Not Reportable 12/13/17 04:40 Malaria parasites Not Reportable 12/13/17 04:40 Luciano Bodies Not Reportable 12/13/17 04:40 Hem Pathologist Commnt No 12/13/17 04:40 PT 13.6 Sec. (12.2-14.9) 12/12/17 13:08 INR 0.99 (0.87-1.13) 12/12/17 13:08 APTT 32.0 Sec. (24.2-36.6) 12/12/17 13:08 Sodium 131 mmol/L (137-145) L 12/14/17 04:34 Potassium 3.4 mmol/L (3.6-5.0) L 12/14/17 04:34 Chloride 95.3 mmol/L (98-107) L 12/14/17 04:34 Carbon Dioxide 21 mmol/L (22-30) L 12/14/17 04:34 Anion Gap 18 mmol/L 12/14/17 04:34 BUN 4 mg/dL (7-17) L 12/14/17 04:34 Creatinine 0.5 mg/dL (0.7-1.2) L 12/14/17 04:34 Estimated GFR > 60 ml/min 12/14/17 04:34 BUN/Creatinine Ratio 8 % 12/14/17 04:34 Glucose 87 mg/dL (65-100) 12/14/17 04:34 Lactic Acid 0.80 mmol/L (0.7-2.0) 12/12/17 20:55 Calcium 8.5 mg/dL (8.4-10.2) 12/14/17 04:34 Total Bilirubin 0.60 mg/dL (0.1-1.2) 12/14/17 04:34 Direct Bilirubin 0.4 mg/dL (0-0.2) H 12/12/17 10:08 Indirect Bilirubin 0.7 mg/dL 12/12/17 10:08 AST 11 units/L (5-40) 12/14/17 04:34 ALT < 5 units/L (7-56) L 12/14/17 04:34 Alkaline Phosphatase 75 units/L (35-129) 12/14/17 04:34 Troponin T < 0.010 ng/mL (0.00-0.029) 12/12/17 13:08 C-Reactive Protein 27.70 mg/dL (0.00-1.30) H 12/13/17 15:45 NT-Pro-B Natriuret Pep 100.0 pg/mL (0-450) 12/12/17 13:08 Total Protein 6.2 g/dL (6.3-8.2) L D 12/14/17 04:34 Albumin 3.0 g/dL (3.9-5) L 12/14/17 04:34 Albumin/Globulin Ratio 0.9 % 12/14/17 04:34 Triglycerides 1032 mg/dL (2-149) H 12/14/17 04:34 Cholesterol 412 mg/dL (50-199) H 12/14/17 04:34 LDL Cholesterol Direct 99 mg/dL (50-130) 12/14/17 04:34 HDL Cholesterol 24 mg/dL (40-59) L 12/14/17 04:34 Cholesterol/HDL Ratio 17.16 % 12/14/17 04:34 Lipase 49 units/L (13-60) 12/13/17 15:45 HCG, Qual Negative (Negative) 12/12/17 10:08 Urine Color Sara (Yellow) 12/12/17 13:30 Urine Turbidity Clear (Clear) 12/12/17 13:30 Urine pH 5.0 (5.0-7.0) 12/12/17 13:30 Ur Specific [place] 1.034 (1.003-1.030) H 12/12/17 13:30 Urine Protein 100 mg/dl mg/dL (Negative) 12/12/17 13:30 Urine Glucose (UA) 50 mg/dL (Negative) 12/12/17 13:30 Urine Ketones Neg mg/dL (Negative) 12/12/17 13:30 Urine Blood Neg (Negative) 12/12/17 13:30 Urine Nitrite Neg (Negative) 12/12/17 13:30 Urine Bilirubin Neg (Negative) 12/12/17 13:30 Urine Urobilinogen 4.0 mg/dL (<2.0) 12/12/17 13:30 Ur Leukocyte Esterase Neg (Negative) 12/12/17 13:30 Urine WBC (Auto) 10.0 /HPF (0.0-6.0) H 12/12/17 13:30 Urine RBC (Auto) 9.0 /HPF (0.0-6.0) 12/12/17 13:30 U Epithel Cells (Auto) 8.0 /HPF (0-13.0) 12/12/17 13:30 Urine Bacteria (Auto) 1+ /HPF (Negative) 12/12/17 13:30 Granular Casts 4 /LPF 12/12/17 13:30 WBC Casts 4 /LPF 12/12/17 13:30 Urine Mucus 3+ /HPF 12/12/17 13:30
--- NOTE | 2017-12-14 12:07 | Gastroenterology Progress Note ---
Assessment and Plan GI: pt w/ slow resolving pancreatitis - continue NPO, IV fluids and pain meds - follow labs - consider PO based on progress - will follow Subjective Date of service: 12/14/17 Interval history: - reports pain not improved, denies other GI complaints Objective - Constitutional Vitals: Temp Pulse Resp BP Pulse Ox 98.2 F 81 16 116/69 99 12/14/17 05:40 12/14/17 05:40 12/14/17 05:40 12/14/17 05:40 12/14/17 05:40 General appearance: no acute distress - EENT Eyes: PERRL - Respiratory Respiratory: bilateral: CTA - Cardiovascular Rhythm: regular Heart Sounds: Present: S1 & S2 - Gastrointestinal General gastrointestinal: Present: soft, non-tender, non-distended - Labs CBC & Chem 7: 12/14/17 04:34 12/14/17 04:34 Labs: Laboratory Results - last 24 hr 12/13/17 12/14/17 12/14/17 15:45 04:34 04:34 WBC 14.6 H RBC 3.38 L Hgb 9.7 L Hct 29.4 L MCV 87 MCH 29 MCHC 33 RDW 14.0 Plt Count 208 Sodium 131 L Potassium 3.4 L Chloride 95.3 L Carbon Dioxide 21 L Anion Gap 18 BUN 4 L Creatinine 0.5 L Estimated GFR > 60 BUN/Creatinine Ratio 8 Glucose 87 Calcium 8.5 Total Bilirubin 0.60 AST 11 ALT < 5 L Alkaline Phosphatase 75 C-Reactive Protein 27.70 H Total Protein 6.2 L D Albumin 3.0 L Albumin/Globulin Ratio 0.9 Triglycerides 1032 H Cholesterol 412 H LDL Cholesterol Direct 99 HDL Cholesterol 24 L Cholesterol/HDL Ratio 17.16 Lipase 49
[2017-12-14] MEDS: TYLENOL PO PRN (16:59)
[2017-12-15] MEDS: DILAUDID IV PRN ×5 (03:21→22:05)
[2017-12-15] MEDS: SODIUM CHLORIDE FLUSH SYRINGE 10 ML IV SCH ×3 (03:21→21:28)
[2017-12-15] MEDS: ZOSYN/NS 4.5GM/100ML 4.5 GM/100 ML VIAL IV SCH ×3 (05:12→21:22)
[2017-12-15] MEDS: D5/0.45NS 1,000 ML IV SCH ×2 (05:13→18:44)
[2017-12-15] MEDS: FLAGYL PO SCH ×3 (05:13→21:22)
--- NOTE | 2017-12-15 08:32 | Progress Note ---
Assessment and Plan Assessment and plan: 47 YO Female with HTN, Chronic Pancreatitis, Nicotine Dependence, presents to ED for evaluation. Pt states that she has experienced Abdominal pain for the past 3 days with worsening symptoms over the past 2 days, as well as headache for the past 2 days. Pt states that abdominal pain is 10/10, diffuse, constant, worsened with eating, no alleviating factors. Pt acknowledges nausea and two episodes of vomiting. Pt also complains of 5/10 frontal headache. Pt denies fever, chills, CP, Palpitations, Trauma, BRBPR, hematemesis or recent ill contacts, or ingestion of food/water from new or different sources. Pt seen and evaluated in ED and found to have Acute Pancreatitis, Sepsis, and well as lactic acidosis. Pt admitted to medical floor. Sepsis Acute Cystitis Acute Pancreatitis secondary to alcohol abuse complicated by hypertriglyceridemia Hypertriglycerdemia Peritoneal irritation secondary to acute pancreatitis Tobacco dependance with Withdrawal EtOH abuse Metabolic acidosis- Improved Headache- now resolved plan * Continue supportive care, pain control * urine culture-no growth will complete antibiotics and then discontinued * We'll recheck triglyceride level following her insulin drip treatment * Continue abx * Extensive counseling given to the patient about cessation of alcohol and tobacco * GI input appreciated * Replace electrolytes * Pain control * CONTINUE NPO, STILL WITH PAIN 7/10. INCREASE DILAUDID TO 1MG Q4H PRN * DVT/GI prophy * Plan of care discussed with the patient in detail History Interval history: Patient seen and examined, Adominal pain not as intense but still present. asking for stronger pain medications Hospitalist Physical - Physical exam Narrative exam: VITAL SIGNS: Reviewed. GENERAL: The patient appeared well nourished and normally developed. Vital signs as documented. HEAD: No signs of head trauma. EYES: Pupils are equal. Extraocular motions intact. EARS: Hearing grossly intact. MOUTH: Oropharynx is normal. NECK: No adenopathy, no JVD. CHEST: Chest with clear breath sounds bilaterally. No wheezes, rales, or rhonchi. CARDIAC: Regular rate and rhythm. S1 and S2, without murmurs, gallops, or rubs. VASCULAR: No Edema. Peripheral pulses normal and equal in all extremities. ABDOMEN: Soft, tender. No sign of distention. No rebound or guarding, and no masses palpated. Bowel Sounds normal. MUSCULOSKELETAL: Good range of motion of all major joints. Extremities without clubbing, cyanosis or edema. NEUROLOGIC EXAM: Alert and oriented x 3. No focal sensory or strength deficits. Speech normal. Follows commands. PSYCHIATRIC: Mood normal. SKIN: No rash or lesions. - Constitutional Vitals: Temp Pulse Resp BP Pulse Ox 97.8 F 70 20 128/71 99 12/15/17 05:57 12/15/17 05:57 12/15/17 05:57 12/15/17 05:57 12/15/17 05:57 General appearance: Present: mild distress Results - Labs CBC & Chem 7: 12/15/17 10:00 12/15/17 10:00 Labs: Laboratory Last Values WBC 14.6 K/mm3 (4.5-11.0) H 12/14/17 04:34 RBC 3.38 M/mm3 (3.65-5.03) L 12/14/17 04:34 Hgb 9.7 gm/dl (10.1-14.3) L 12/14/17 04:34 Hct 29.4 % (30.3-42.9) L 12/14/17 04:34 MCV 87 fl (79-97) 12/14/17 04:34 MCH 29 pg (28-32) 12/14/17 04:34 MCHC 33 % (30-34) 12/14/17 04:34 RDW 14.0 % (13.2-15.2) 12/14/17 04:34 Plt Count 208 K/mm3 (140-440) 12/14/17 04:34 Add Manual Diff Complete 12/13/17 04:40 Total Counted 100 12/13/17 04:40 Seg Neuts % (Manual) 48.0 % (40.0-70.0) 12/13/17 04:40 Band Neutrophils % 24.0 % 12/13/17 04:40 Lymphocytes % (Manual) 16.0 % (13.4-35.0) 12/13/17 04:40 Reactive Lymphs % (Man) 0 % 12/13/17 04:40 Monocytes % (Manual) 10.0 % (0.0-7.3) H 12/13/17 04:40 Eosinophils % (Manual) 2.0 % (0.0-4.3) 12/13/17 04:40 Basophils % (Manual) 0 % (0.0-1.8) 12/13/17 04:40 Metamyelocytes % 0 % 12/13/17 04:40 Myelocytes % 0 % 12/13/17 04:40 Promyelocytes % 0 % 12/13/17 04:40 Blast Cells % 0 % 12/13/17 04:40 Nucleated RBC % Not Reportable 12/13/17 04:40 Seg Neutrophils # Man 6.6 K/mm3 (1.8-7.7) 12/13/17 04:40 Band Neutrophils # 3.3 K/mm3 12/13/17 04:40 Lymphocytes # (Manual) 2.2 K/mm3 (1.2-5.4) 12/13/17 04:40 Abs React Lymphs (Man) 0.0 K/mm3 12/13/17 04:40 Monocytes # (Manual) 1.4 K/mm3 (0.0-0.8) H 12/13/17 04:40 Eosinophils # (Manual) 0.3 K/mm3 (0.0-0.4) 12/13/17 04:40 Basophils # (Manual) 0.0 K/mm3 (0.0-0.1) 12/13/17 04:40 Metamyelocytes # 0.0 K/mm3 12/13/17 04:40 Myelocytes # 0.0 K/mm3 12/13/17 04:40 Promyelocytes # 0.0 K/mm3 12/13/17 04:40 Blast Cells # 0.0 K/mm3 12/13/17 04:40 WBC Morphology Not Reportable 12/13/17 04:40 Hypersegmented Neuts Not Reportable 12/13/17 04:40 Hyposegmented Neuts Not Reportable 12/13/17 04:40 Hypogranular Neuts Not Reportable 12/13/17 04:40 Smudge Cells Not Reportable 12/13/17 04:40 Toxic Granulation Not Reportable 12/13/17 04:40 Toxic Vacuolation Not Reportable 12/13/17 04:40 Dohle Bodies Not Reportable 12/13/17 04:40 Pelger-Huet Anomaly Not Reportable 12/13/17 04:40 Mitali Rods Not Reportable 12/13/17 04:40 Platelet Estimate Consistent w auto 12/13/17 04:40 Clumped Platelets Not Reportable 12/13/17 04:40 Plt Clumps, EDTA Not Reportable 12/13/17 04:40 Large Platelets Not Reportable 12/13/17 04:40 Giant Platelets Not Reportable 12/13/17 04:40 Platelet Satelliting Not Reportable 12/13/17 04:40 Plt Morphology Comment Not Reportable 12/13/17 04:40 RBC Morphology Not Reportable 12/13/17 04:40 Dimorphic RBCs Not Reportable 12/13/17 04:40 Polychromasia Not Reportable 12/13/17 04:40 Hypochromasia Not Reportable 12/13/17 04:40 Poikilocytosis Not Reportable 12/13/17 04:40 Anisocytosis 1+ 12/13/17 04:40 Microcytosis Not Reportable 12/13/17 04:40 Macrocytosis Not Reportable 12/13/17 04:40 Spherocytes Not Reportable 12/13/17 04:40 Pappenheimer Bodies Not Reportable 12/13/17 04:40 Sickle Cells Not Reportable 12/13/17 04:40 Target Cells Not Reportable 12/13/17 04:40 Tear Drop Cells Not Reportable 12/13/17 04:40 Ovalocytes Not Reportable 12/13/17 04:40 Stomatocytes Few 12/13/17 04:40 Helmet Cells Not Reportable 12/13/17 04:40 Reyes-[place] Bodies Not Reportable 12/13/17 04:40 [place] Rings Not Reportable 12/13/17 04:40 Margo Cells Not Reportable 12/13/17 04:40 Bite Cells Not Reportable 12/13/17 04:40 Crenated Cell Not Reportable 12/13/17 04:40 Elliptocytes Not Reportable 12/13/17 04:40 Acanthocytes (Spur) Not Reportable 12/13/17 04:40 Rouleaux Not Reportable 12/13/17 04:40 Hemoglobin C Crystals Not Reportable 12/13/17 04:40 Schistocytes Not Reportable 12/13/17 04:40 Malaria parasites Not Reportable 12/13/17 04:40 Luciano Bodies Not Reportable 12/13/17 04:40 Hem Pathologist Commnt No 12/13/17 04:40 PT 13.6 Sec. (12.2-14.9) 07/26/18 13:08 INR 0.99 (0.87-1.13) 12/12/17 13:08 APTT 32.0 Sec. (24.2-36.6) 12/12/17 13:08 Sodium 131 mmol/L (137-145) L 12/14/17 04:34 Potassium 3.4 mmol/L (3.6-5.0) L 12/14/17 04:34 Chloride 95.3 mmol/L (98-107) L 12/14/17 04:34 Carbon Dioxide 21 mmol/L (22-30) L 12/14/17 04:34 Anion Gap 18 mmol/L 12/14/17 04:34 BUN 4 mg/dL (7-17) L 12/14/17 04:34 Creatinine 0.5 mg/dL (0.7-1.2) L 12/14/17 04:34 Estimated GFR > 60 ml/min 12/14/17 04:34 BUN/Creatinine Ratio 8 % 12/14/17 04:34 Glucose 87 mg/dL (65-100) 12/14/17 04:34 POC Glucose 112 (70-105) H 12/14/17 21:19 Lactic Acid 0.80 mmol/L (0.7-2.0) 12/12/17 20:55 Calcium 8.5 mg/dL (8.4-10.2) 12/14/17 04:34 Total Bilirubin 0.60 mg/dL (0.1-1.2) 12/14/17 04:34 Direct Bilirubin 0.4 mg/dL (0-0.2) H 12/12/17 10:08 Indirect Bilirubin 0.7 mg/dL 12/12/17 10:08 AST 11 units/L (5-40) 12/14/17 04:34 ALT < 5 units/L (7-56) L 12/14/17 04:34 Alkaline Phosphatase 75 units/L (35-129) 12/14/17 04:34 Troponin T < 0.010 ng/mL (0.00-0.029) 12/12/17 13:08 C-Reactive Protein 27.70 mg/dL (0.00-1.30) H 12/13/17 15:45 NT-Pro-B Natriuret Pep 100.0 pg/mL (0-450) 12/12/17 13:08 Total Protein 6.2 g/dL (6.3-8.2) L D 12/14/17 04:34 Albumin 3.0 g/dL (3.9-5) L 12/14/17 04:34 Albumin/Globulin Ratio 0.9 % 12/14/17 04:34 Triglycerides 1032 mg/dL (2-149) H 12/14/17 04:34 Cholesterol 412 mg/dL (50-199) H 12/14/17 04:34 LDL Cholesterol Direct 99 mg/dL (50-130) 12/14/17 04:34 HDL Cholesterol 24 mg/dL (40-59) L 12/14/17 04:34 Cholesterol/HDL Ratio 17.16 % 12/14/17 04:34 Lipase 49 units/L (13-60) 12/13/17 15:45 HCG, Qual Negative (Negative) 12/12/17 10:08 Urine Color Sara (Yellow) 12/12/17 13:30 Urine Turbidity Clear (Clear) 12/12/17 13:30 Urine pH 5.0 (5.0-7.0) 12/12/17 13:30 Ur Specific [place] 1.034 (1.003-1.030) H 12/12/17 13:30 Urine Protein 100 mg/dl mg/dL (Negative) 12/12/17 13:30 Urine Glucose (UA) 50 mg/dL (Negative) 12/12/17 13:30 Urine Ketones Neg mg/dL (Negative) 12/12/17 13:30 Urine Blood Neg (Negative) 12/12/17 13:30 Urine Nitrite Neg (Negative) 12/12/17 13:30 Urine Bilirubin Neg (Negative) 12/12/17 13:30 Urine Urobilinogen 4.0 mg/dL (<2.0) 12/12/17 13:30 Ur Leukocyte Esterase Neg (Negative) 12/12/17 13:30 Urine WBC (Auto) 10.0 /HPF (0.0-6.0) H 12/12/17 13:30 Urine RBC (Auto) 9.0 /HPF (0.0-6.0) 12/12/17 13:30 U Epithel Cells (Auto) 8.0 /HPF (0-13.0) 12/12/17 13:30 Urine Bacteria (Auto) 1+ /HPF (Negative) 12/12/17 13:30 Granular Casts 4 /LPF 12/12/17 13:30 WBC Casts 4 /LPF 12/12/17 13:30 Urine Mucus 3+ /HPF 12/12/17 13:30
[2017-12-15] MEDS: PEPCID PO SCH ×2 (09:40→21:22)
[2017-12-15] MEDS: TRICOR PO SCH (09:41)
[2017-12-15] MEDS: CARDIZEM CD PO SCH (09:41)
[2017-12-15] MEDS: ZOFRAN IV PRN (10:01)
[2017-12-15 10:43] LABS: Hematocrit 30.4 % (30.3-42.9); Hemoglobin 10.5 gm/dl (10.1-14.3); Mean Corpuscular HGB Conc 35 % (30-34); Mean Corpuscular Hemoglobin 30 pg (28-32); Mean Corpuscular Volume 86 fl (79-97); Platelet Count 256 K/mm3 (140-440); Red Blood Count 3.53 M/mm3 (3.65-5.03); Red Cell Distribution Width 13.9 % (13.2-15.2)
[2017-12-15 11:02] LABS: Alanine Aminotransferase 5 units/L (7-56); Albumin 3.3 g/dL (3.9-5); BUN/Creatinine Ratio 2; Blood Urea Nitrogen < 1 mg/dL (7-17); Calcium 8.9 mg/dL (8.4-10.2); Hemolysis Index 1
--- NOTE | 2017-12-15 12:41 | Gastroenterology Progress Note ---
Assessment and Plan GI: slowly resolving pancreatitis - HIDA for possible GB disease - follow labs (CRP improving) - start clear liquid diet, - will follow Subjective Date of service: 12/15/17 Interval history: - reports pain improving, denies other GI complaints Objective - Constitutional Vitals: Temp Pulse Resp BP Pulse Ox 97.6 F 69 20 130/76 100 12/15/17 11:41 12/15/17 11:41 12/15/17 11:41 12/15/17 11:41 12/15/17 11:41 General appearance: no acute distress - EENT Eyes: PERRL - Respiratory Respiratory: bilateral: CTA - Cardiovascular Rhythm: regular Heart Sounds: Present: S1 & S2 - Gastrointestinal General gastrointestinal: Present: soft, non-tender, non-distended - Labs CBC & Chem 7: 12/15/17 10:00 12/15/17 10:00 Labs: Laboratory Results - last 24 hr 12/14/17 12/14/17 12/14/17 13:42 16:42 21:19 WBC RBC Hgb Hct MCV MCH MCHC RDW Plt Count Sodium Potassium Chloride Carbon Dioxide Anion Gap BUN Creatinine Estimated GFR BUN/Creatinine Ratio Glucose POC Glucose 115 H 93 112 H Calcium Total Bilirubin AST ALT Alkaline Phosphatase C-Reactive Protein Total Protein Albumin Albumin/Globulin Ratio Triglycerides 12/15/17 12/15/17 12/15/17 10:00 10:00 10:00 WBC 9.8 RBC 3.53 L Hgb 10.5 Hct 30.4 MCV 86 MCH 30 MCHC 35 H RDW 13.9 Plt Count 256 Sodium 135 L Potassium 3.3 L Chloride 98.7 Carbon Dioxide 24 Anion Gap 16 BUN < 1 L Creatinine 0.5 L Estimated GFR > 60 BUN/Creatinine Ratio 2 Glucose 132 H POC Glucose Calcium 8.9 Total Bilirubin 0.30 AST 14 ALT 5 L Alkaline Phosphatase 65 C-Reactive Protein 11.30 H Total Protein 6.5 Albumin 3.3 L Albumin/Globulin Ratio 1.0 Triglycerides 640 H
[2017-12-16] MEDS: D5/0.45NS 1,000 ML IV SCH ×3 (02:09→22:02)
[2017-12-16 04:43] LABS: Hematocrit 28.1 % (30.3-42.9); Hemoglobin 9.8 gm/dl (10.1-14.3); Mean Corpuscular HGB Conc 35 % (30-34); Mean Corpuscular Hemoglobin 30 pg (28-32); Mean Corpuscular Volume 86 fl (79-97); Platelet Count 259 K/mm3 (140-440); Red Blood Count 3.26 M/mm3 (3.65-5.03); Red Cell Distribution Width 13.7 % (13.2-15.2)
[2017-12-16 05:06] LABS: Alanine Aminotransferase 6 units/L (7-56); Albumin 3.3 g/dL (3.9-5); Hemolysis Index 7
[2017-12-16 05:07] LABS: BUN/Creatinine Ratio 3; Blood Urea Nitrogen < 1 mg/dL (7-17)
[2017-12-16] MEDS: ZOSYN/NS 4.5GM/100ML 4.5 GM/100 ML VIAL IV SCH ×2 (05:52→14:06)
[2017-12-16] MEDS: DILAUDID IV PRN ×4 (05:53→23:58)
[2017-12-16] MEDS: FLAGYL PO SCH ×2 (05:53→15:02)
--- NOTE | 2017-12-16 10:10 | Gastroenterology Progress Note ---
<DEEP MARCUM - Last Filed: 12/16/17 10:06> Assessment and Plan 1.acute pancreatitis -afebrile -WBC now WNL -lipase now WNL -CRP 7.40-trending down -CT showed acute pancreatitis -u/s revealed sludge in gallbladder -HIDA scan pending for possible GB disease -continue clear liquids -continue to trend labs and supportive care -further recommendations to follow Subjective Date of service: 12/16/17 Principal diagnosis: acute pancreatitis Interval history: No acute events overnight. Reports abd pain improved. No N/V or other GI complaints. Objective - Constitutional Vitals: Temp Pulse Resp BP Pulse Ox 98.2 F 70 20 153/93 99 12/16/17 05:56 12/16/17 05:56 12/16/17 05:56 12/16/17 05:56 12/16/17 05:56 General appearance: no acute distress - Respiratory Respiratory: bilateral: CTA - Cardiovascular Rhythm: regular Heart Sounds: Present: S1 & S2 - Gastrointestinal General gastrointestinal: Present: soft, tender (slight TTP in RUQ), non- distended, normal bowel sounds - Neurologic Neurological: alert and oriented x3 - Labs CBC & Chem 7: 12/16/17 03:46 12/16/17 03:46 Labs: Laboratory Results - last 24 hr 12/15/17 12/15/17 12/15/17 10:00 10:00 10:00 WBC 9.8 RBC 3.53 L Hgb 10.5 Hct 30.4 MCV 86 MCH 30 MCHC 35 H RDW 13.9 Plt Count 256 Sodium 135 L Potassium 3.3 L Chloride 98.7 Carbon Dioxide 24 Anion Gap 16 BUN < 1 L Creatinine 0.5 L Estimated GFR > 60 BUN/Creatinine Ratio 2 Glucose 132 H Calcium 8.9 Total Bilirubin 0.30 AST 14 ALT 5 L Alkaline Phosphatase 65 C-Reactive Protein 11.30 H Total Protein 6.5 Albumin 3.3 L Albumin/Globulin Ratio 1.0 Triglycerides 640 H 12/16/17 12/16/17 12/16/17 03:46 03:46 05:22 WBC 8.0 RBC 3.26 L Hgb 9.8 L Hct 28.1 L MCV 86 MCH 30 MCHC 35 H RDW 13.7 Plt Count 259 Sodium 136 L Potassium 3.2 L Chloride 99.2 Carbon Dioxide 23 Anion Gap 17 BUN < 1 L Creatinine 0.4 L Estimated GFR > 60 BUN/Creatinine Ratio 3 Glucose 137 H Calcium 9.0 Total Bilirubin 0.20 AST 15 ALT 6 L Alkaline Phosphatase 65 C-Reactive Protein 7.40 H Total Protein 6.5 Albumin 3.3 L Albumin/Globulin Ratio 1.0 Triglycerides <KRISTIN,NORRIS R - Last Filed: 12/16/17 17:23> Assessment and Plan Matilde clears. Adv diet and discharge if matilde po. HIDA scan pending. Objective - Constitutional Vitals: Temp Pulse Resp BP Pulse Ox 97.8 F 70 20 148/83 99 12/16/17 10:36 12/16/17 05:56 12/16/17 10:36 12/16/17 10:36 12/16/17 05:56 - Labs CBC & Chem 7: 12/16/17 03:46 12/16/17 03:46 Labs: Laboratory Results - last 24 hr 12/16/17 12/16/17 12/16/17 03:46 03:46 05:22 WBC 8.0 RBC 3.26 L Hgb 9.8 L Hct 28.1 L MCV 86 MCH 30 MCHC 35 H RDW 13.7 Plt Count 259 Sodium 136 L Potassium 3.2 L Chloride 99.2 Carbon Dioxide 23 Anion Gap 17 BUN < 1 L Creatinine 0.4 L Estimated GFR > 60 BUN/Creatinine Ratio 3 Glucose 137 H Calcium 9.0 Total Bilirubin 0.20 AST 15 ALT 6 L Alkaline Phosphatase 65 C-Reactive Protein 7.40 H Total Protein 6.5 Albumin 3.3 L Albumin/Globulin Ratio 1.0
[2017-12-16] MEDS: CARDIZEM CD PO SCH (15:02)
[2017-12-16] MEDS: SODIUM CHLORIDE FLUSH SYRINGE 10 ML IV SCH ×2 (15:02→21:09)
[2017-12-16] MEDS: PEPCID PO SCH ×2 (15:02→21:06)
[2017-12-16] MEDS: TRICOR PO SCH (15:03)
--- NOTE | 2017-12-16 17:08 | Progress Note ---
Assessment and Plan Assessment and plan: 47 YO Female with HTN, Chronic Pancreatitis, Nicotine Dependence, presents to ED for evaluation. Pt states that she has experienced Abdominal pain for the past 3 days with worsening symptoms over the past 2 days, as well as headache for the past 2 days. Pt states that abdominal pain is 10/10, diffuse, constant, worsened with eating, no alleviating factors. Pt acknowledges nausea and two episodes of vomiting. Pt also complains of 5/10 frontal headache. Pt denies fever, chills, CP, Palpitations, Trauma, BRBPR, hematemesis or recent ill contacts, or ingestion of food/water from new or different sources. Pt seen and evaluated in ED and found to have Acute Pancreatitis, Sepsis, and well as lactic acidosis. Pt admitted to medical floor. Sepsis Acute Cystitis Acute Pancreatitis secondary to alcohol abuse complicated by hypertriglyceridemia Hypertriglycerdemia Peritoneal irritation secondary to acute pancreatitis Tobacco dependance with Withdrawal Moderate Protein calorie malnutrition EtOH abuse' Hypokalemia Metabolic acidosis- Improved Headache- now resolved plan * Continue supportive care, pain control * urine culture-no growth will discontinue antibiotics at this time * We'll recheck triglyceride level following her insulin drip treatment * HIDAScan pending * Replace K * Extensive counseling given to the patient about cessation of alcohol and tobacco * GI input appreciated * Replace electrolytes * Pain control * Pain improved. ADVANCE TO FULL LIQUID * DVT/GI prophy * Plan of care discussed with the patient in detail * Discussed with GI History Interval history: Patient seen and examined, Adominal pain not as intense but still present. asking for stronger pain medications Hospitalist Physical - Physical exam Narrative exam: VITAL SIGNS: Reviewed. GENERAL: The patient appeared well nourished and normally developed. Vital signs as documented. HEAD: No signs of head trauma. EYES: Pupils are equal. Extraocular motions intact. EARS: Hearing grossly intact. MOUTH: Oropharynx is normal. NECK: No adenopathy, no JVD. CHEST: Chest with clear breath sounds bilaterally. No wheezes, rales, or rhonchi. CARDIAC: Regular rate and rhythm. S1 and S2, without murmurs, gallops, or rubs. VASCULAR: No Edema. Peripheral pulses normal and equal in all extremities. ABDOMEN: Soft, tender. No sign of distention. No rebound or guarding, and no masses palpated. Bowel Sounds normal. MUSCULOSKELETAL: Good range of motion of all major joints. Extremities without clubbing, cyanosis or edema. NEUROLOGIC EXAM: Alert and oriented x 3. No focal sensory or strength deficits. Speech normal. Follows commands. PSYCHIATRIC: Mood normal. SKIN: No rash or lesions. - Constitutional Vitals: Temp Pulse Resp BP Pulse Ox 97.8 F 70 20 148/83 99 12/16/17 10:36 12/16/17 05:56 12/16/17 10:36 12/16/17 10:36 12/16/17 05:56 General appearance: Present: mild distress Results - Labs CBC & Chem 7: 12/16/17 03:46 12/16/17 03:46 Labs: Laboratory Last Values WBC 8.0 K/mm3 (4.5-11.0) 12/16/17 03:46 RBC 3.26 M/mm3 (3.65-5.03) L 12/16/17 03:46 Hgb 9.8 gm/dl (10.1-14.3) L 12/16/17 03:46 Hct 28.1 % (30.3-42.9) L 12/16/17 03:46 MCV 86 fl (79-97) 12/16/17 03:46 MCH 30 pg (28-32) 12/16/17 03:46 MCHC 35 % (30-34) H 12/16/17 03:46 RDW 13.7 % (13.2-15.2) 12/16/17 03:46 Plt Count 259 K/mm3 (140-440) 12/16/17 03:46 Add Manual Diff Complete 12/13/17 04:40 Total Counted 100 12/13/17 04:40 Seg Neuts % (Manual) 48.0 % (40.0-70.0) 12/13/17 04:40 Band Neutrophils % 24.0 % 12/13/17 04:40 Lymphocytes % (Manual) 16.0 % (13.4-35.0) 12/13/17 04:40 Reactive Lymphs % (Man) 0 % 12/13/17 04:40 Monocytes % (Manual) 10.0 % (0.0-7.3) H 12/13/17 04:40 Eosinophils % (Manual) 2.0 % (0.0-4.3) 12/13/17 04:40 Basophils % (Manual) 0 % (0.0-1.8) 12/13/17 04:40 Metamyelocytes % 0 % 12/13/17 04:40 Myelocytes % 0 % 12/13/17 04:40 Promyelocytes % 0 % 12/13/17 04:40 Blast Cells % 0 % 12/13/17 04:40 Nucleated RBC % Not Reportable 12/13/17 04:40 Seg Neutrophils # Man 6.6 K/mm3 (1.8-7.7) 12/13/17 04:40 Band Neutrophils # 3.3 K/mm3 12/13/17 04:40 Lymphocytes # (Manual) 2.2 K/mm3 (1.2-5.4) 12/13/17 04:40 Abs React Lymphs (Man) 0.0 K/mm3 12/13/17 04:40 Monocytes # (Manual) 1.4 K/mm3 (0.0-0.8) H 12/13/17 04:40 Eosinophils # (Manual) 0.3 K/mm3 (0.0-0.4) 12/13/17 04:40 Basophils # (Manual) 0.0 K/mm3 (0.0-0.1) 12/13/17 04:40 Metamyelocytes # 0.0 K/mm3 12/13/17 04:40 Myelocytes # 0.0 K/mm3 12/13/17 04:40 Promyelocytes # 0.0 K/mm3 12/13/17 04:40 Blast Cells # 0.0 K/mm3 12/13/17 04:40 WBC Morphology Not Reportable 12/13/17 04:40 Hypersegmented Neuts Not Reportable 12/13/17 04:40 Hyposegmented Neuts Not Reportable 12/13/17 04:40 Hypogranular Neuts Not Reportable 12/13/17 04:40 Smudge Cells Not Reportable 12/13/17 04:40 Toxic Granulation Not Reportable 12/13/17 04:40 Toxic Vacuolation Not Reportable 12/13/17 04:40 Dohle Bodies Not Reportable 12/13/17 04:40 Pelger-Huet Anomaly Not Reportable 12/13/17 04:40 Miatli Rods Not Reportable 12/13/17 04:40 Platelet Estimate Consistent w auto 12/13/17 04:40 Clumped Platelets Not Reportable 12/13/17 04:40 Plt Clumps, EDTA Not Reportable 12/13/17 04:40 Large Platelets Not Reportable 12/13/17 04:40 Giant Platelets Not Reportable 12/13/17 04:40 Platelet Satelliting Not Reportable 12/13/17 04:40 Plt Morphology Comment Not Reportable 12/13/17 04:40 RBC Morphology Not Reportable 12/13/17 04:40 Dimorphic RBCs Not Reportable 12/13/17 04:40 Polychromasia Not Reportable 12/13/17 04:40 Hypochromasia Not Reportable 12/13/17 04:40 Poikilocytosis Not Reportable 12/13/17 04:40 Anisocytosis 1+ 12/13/17 04:40 Microcytosis Not Reportable 12/13/17 04:40 Macrocytosis Not Reportable 12/13/17 04:40 Spherocytes Not Reportable 12/13/17 04:40 Pappenheimer Bodies Not Reportable 12/13/17 04:40 Sickle Cells Not Reportable 12/13/17 04:40 Target Cells Not Reportable 12/13/17 04:40 Tear Drop Cells Not Reportable 12/13/17 04:40 Ovalocytes Not Reportable 12/13/17 04:40 Stomatocytes Few 12/13/17 04:40 Helmet Cells Not Reportable 12/13/17 04:40 [place] Bodies Not Reportable 12/13/17 04:40 [place] Rings Not Reportable 12/13/17 04:40 Margo Cells Not Reportable 12/13/17 04:40 Bite Cells Not Reportable 12/13/17 04:40 Crenated Cell Not Reportable 12/13/17 04:40 Elliptocytes Not Reportable 12/13/17 04:40 Acanthocytes (Spur) Not Reportable 12/13/17 04:40 Rouleaux Not Reportable 12/13/17 04:40 Hemoglobin C Crystals Not Reportable 12/13/17 04:40 Schistocytes Not Reportable 12/13/17 04:40 Malaria parasites Not Reportable 12/13/17 04:40 Luciano Bodies Not Reportable 12/13/17 04:40 Hem Pathologist Commnt No 12/13/17 04:40 PT 13.6 Sec. (12.2-14.9) 12/12/17 13:08 INR 0.99 (0.87-1.13) 12/12/17 13:08 APTT 32.0 Sec. (24.2-36.6) 12/12/17 13:08 Sodium 136 mmol/L (137-145) L 12/16/17 03:46 Potassium 3.2 mmol/L (3.6-5.0) L 12/16/17 03:46 Chloride 99.2 mmol/L (98-107) 12/16/17 03:46 Carbon Dioxide 23 mmol/L (22-30) 12/16/17 03:46 Anion Gap 17 mmol/L 12/16/17 03:46 BUN < 1 mg/dL (7-17) L 12/16/17 03:46 Creatinine 0.4 mg/dL (0.7-1.2) L 12/16/17 03:46 Estimated GFR > 60 ml/min 12/16/17 03:46 BUN/Creatinine Ratio 3 % 12/16/17 03:46 Glucose 137 mg/dL (65-100) H 12/16/17 03:46 POC Glucose 112 (70-105) H 12/14/17 21:19 Lactic Acid 0.80 mmol/L (0.7-2.0) 12/12/17 20:55 Calcium 9.0 mg/dL (8.4-10.2) 12/16/17 03:46 Total Bilirubin 0.20 mg/dL (0.1-1.2) 12/16/17 03:46 Direct Bilirubin 0.4 mg/dL (0-0.2) H 12/12/17 10:08 Indirect Bilirubin 0.7 mg/dL 12/12/17 10:08 AST 15 units/L (5-40) 12/16/17 03:46 ALT 6 units/L (7-56) L 12/16/17 03:46 Alkaline Phosphatase 65 units/L (35-129) 12/16/17 03:46 Troponin T < 0.010 ng/mL (0.00-0.029) 12/12/17 13:08 C-Reactive Protein 7.40 mg/dL (0.00-1.30) H 12/16/17 05:22 NT-Pro-B Natriuret Pep 100.0 pg/mL (0-450) 12/12/17 13:08 Total Protein 6.5 g/dL (6.3-8.2) 12/16/17 03:46 Albumin 3.3 g/dL (3.9-5) L 12/16/17 03:46 Albumin/Globulin Ratio 1.0 % 12/16/17 03:46 Triglycerides 640 mg/dL (2-149) H 12/15/17 10:00 Cholesterol 412 mg/dL (50-199) H 12/14/17 04:34 LDL Cholesterol Direct 99 mg/dL (50-130) 12/14/17 04:34 HDL Cholesterol 24 mg/dL (40-59) L 12/14/17 04:34 Cholesterol/HDL Ratio 17.16 % 12/14/17 04:34 Lipase 49 units/L (13-60) 12/13/17 15:45 HCG, Qual Negative (Negative) 12/12/17 10:08 Urine Color Sara (Yellow) 12/12/17 13:30 Urine Turbidity Clear (Clear) 12/12/17 13:30 Urine pH 5.0 (5.0-7.0) 12/12/17 13:30 Ur Specific [place] 1.034 (1.003-1.030) H 12/12/17 13:30 Urine Protein 100 mg/dl mg/dL (Negative) 12/12/17 13:30 Urine Glucose (UA) 50 mg/dL (Negative) 12/12/17 13:30 Urine Ketones Neg mg/dL (Negative) 12/12/17 13:30 Urine Blood Neg (Negative) 12/12/17 13:30 Urine Nitrite Neg (Negative) 12/12/17 13:30 Urine Bilirubin Neg (Negative) 12/12/17 13:30 Urine Urobilinogen 4.0 mg/dL (<2.0) 12/12/17 13:30 Ur Leukocyte Esterase Neg (Negative) 12/12/17 13:30 Urine WBC (Auto) 10.0 /HPF (0.0-6.0) H 12/12/17 13:30 Urine RBC (Auto) 9.0 /HPF (0.0-6.0) 12/12/17 13:30 U Epithel Cells (Auto) 8.0 /HPF (0-13.0) 12/12/17 13:30 Urine Bacteria (Auto) 1+ /HPF (Negative) 12/12/17 13:30 Granular Casts 4 /LPF 12/12/17 13:30 WBC Casts 4 /LPF 12/12/17 13:30 Urine Mucus 3+ /HPF 12/12/17 13:30
[2017-12-16] MEDS: KCL 10MEQ/100ML 10 MEQ/100 ML BAG IV SCH ×3 (21:06→23:58)
[2017-12-17] MEDS: KCL 10MEQ/100ML 10 MEQ/100 ML BAG IV SCH (02:04)
[2017-12-17] MEDS: DILAUDID IV PRN ×4 (05:57→22:09)
[2017-12-17 06:52] LABS: Alanine Aminotransferase 8 units/L (7-56); Albumin 3.6 g/dL (3.9-5); Calcium 9.2 mg/dL (8.4-10.2); Hemolysis Index 4
[2017-12-17] MEDS: D5/0.45NS 1,000 ML IV SCH ×2 (07:00→22:08)
[2017-12-17 07:09] LABS: BUN/Creatinine Ratio 2; Blood Urea Nitrogen < 1 mg/dL (7-17)
[2017-12-17] MEDS: PEPCID PO SCH (10:24)
[2017-12-17] MEDS: CARDIZEM CD PO SCH (10:24)
[2017-12-17] MEDS: TRICOR PO SCH (10:24)
[2017-12-17] MEDS: SODIUM CHLORIDE FLUSH SYRINGE 10 ML IV SCH ×2 (10:25→22:10)
--- NOTE | 2017-12-17 11:26 | Gastroenterology Progress Note ---
<JOSSUEDEEPCAT Marcum - Last Filed: 12/17/17 11:28> Assessment and Plan 1.acute pancreatitis -afebrile -WBC WNL -lipase now WNL -triglycerides 640 -CRP trending down (3.70) -CT showed acute pancreatitis -u/s revealed sludge in gallbladder -etiology- likely 2/2 ETOH abuse complicated by hypertriglyceridemia -HIDA scan done with results pending to r/o GB disease -electrolyte management per primary team -continue to advance diet as tolerated and supportive care -alcohol cessation discussed with patient -will follow Subjective Date of service: 12/17/17 Principal diagnosis: acute pancreatitis Interval history: Patient w/o acute distress. Reports abd pain improved but still present and unable to tolerate PO intake this am. Objective - Constitutional Vitals: Temp Pulse Resp BP Pulse Ox 98.7 F 70 24 145/93 98 12/17/17 05:25 12/17/17 05:25 12/17/17 05:25 12/17/17 05:25 12/17/17 05:25 General appearance: no acute distress - Respiratory Respiratory: bilateral: CTA - Cardiovascular Rhythm: regular Heart Sounds: Present: S1 & S2 - Gastrointestinal General gastrointestinal: Present: soft, tender (mild TTP ), non-distended, normal bowel sounds - Neurologic Neurological: alert and oriented x3 - Labs CBC & Chem 7: 12/16/17 03:46 12/17/17 05:50 Labs: Laboratory Results - last 24 hr 12/17/17 05:50 Sodium 138 Potassium 3.8 Chloride 99.3 Carbon Dioxide 24 Anion Gap 19 BUN < 1 L Creatinine 0.5 L Estimated GFR > 60 BUN/Creatinine Ratio 2 Glucose 96 Calcium 9.2 Total Bilirubin 0.20 AST 23 ALT 8 Alkaline Phosphatase 66 C-Reactive Protein 3.70 H Total Protein 7.0 Albumin 3.6 L Albumin/Globulin Ratio 1.1 <NORRIS FOSTER - Last Filed: 12/17/17 15:06> Assessment and Plan Pt has had increased discomfort with po intake of solids, though she states she is improving. Of note, pt was drinking 2 wine coolers/d, approx 12 oz each, prior to attack. CT - significant inflammation around HOP HIDA - delayed filling of GB - nonspecific Rec - conservative management of pancreatitis. - pt encouraged to move around - repeat CT as outpatient, in 2-3 wks Objective - Constitutional Vitals: Temp Pulse Resp BP Pulse Ox 98.0 F 74 20 173/99 100 12/17/17 12:02 12/17/17 12:02 12/17/17 12:02 12/17/17 12:02 12/17/17 12:02 - Labs CBC & Chem 7: 12/16/17 03:46 12/17/17 05:50 Labs: Laboratory Results - last 24 hr 12/17/17 05:50 Sodium 138 Potassium 3.8 Chloride 99.3 Carbon Dioxide 24 Anion Gap 19 BUN < 1 L Creatinine 0.5 L Estimated GFR > 60 BUN/Creatinine Ratio 2 Glucose 96 Calcium 9.2 Total Bilirubin 0.20 AST 23 ALT 8 Alkaline Phosphatase 66 C-Reactive Protein 3.70 H Total Protein 7.0 Albumin 3.6 L Albumin/Globulin Ratio 1.1
--- NOTE | 2017-12-17 12:45 | Nuclear Medicine Report ---
HEPATOBILIARY SCAN: History: Nausea, pancreatitis. Comparison: CT abdomen pelvis with contrast performed 12/12/17. Ultrasound abdomen dated 12/13/17. Following the injection of the radionuclide, serial scanning was obtained over the right upper quadrant. Initial imaging of the liver demonstrates a relatively normal activity pattern. There is normal appearance of the radiotracer in the central biliary ducts, common bile duct and small bowel loops. There is only trace radiotracer identified in the gallbladder on the 90 minute anterior abdominal image only. Enterogastric reflux is also noted. IMPRESSION: There is moderate delay and only partial filling of the gallbladder seen at 90 minutes post injection. There is mild gallbladder wall thickening on ultrasound with evidence of a small amount of sludge. The significance of this is unclear. This may be reactive secondary to pancreatitis. No definite secondary findings of acute cholecystitis. Enterogastric reflux.
[2017-12-17] MEDS: PROTONIX IV SCH (22:08)
[2017-12-18] MEDS: D5/0.45NS 1,000 ML IV SCH (05:40)
[2017-12-18 05:43] LABS: Hematocrit 31.7 % (30.3-42.9); Hemoglobin 10.4 gm/dl (10.1-14.3); Mean Corpuscular HGB Conc 33 % (30-34); Mean Corpuscular Hemoglobin 29 pg (28-32); Mean Corpuscular Volume 87 fl (79-97); Platelet Count 325 K/mm3 (140-440); Red Blood Count 3.66 M/mm3 (3.65-5.03); Red Cell Distribution Width 14.1 % (13.2-15.2)
[2017-12-18] MEDS: CARDIZEM CD PO SCH (10:47)
[2017-12-18 10:48] VITALS: BP 150/90
[2017-12-18] MEDS: PROTONIX IV SCH (10:48)
[2017-12-18] MEDS: TRICOR PO SCH (10:48)
[2017-12-18] MEDS: SODIUM CHLORIDE FLUSH SYRINGE 10 ML IV SCH (10:48)
--- NOTE | 2017-12-18 10:56 | Discharge Summary ---
Providers - Providers Date of Admission: 12/12/17 15:45 Attending physician: ALEX MONTES MD 12/13/17 11:54 Consult to Physician [CONS] Routine Comment: Consulting Provider: EVE HORNE Physician Instructions: Reason For Exam: acute pancreatitis Primary care physician: [employer]PERVISOR Hospitalization Reason for admission: acute pancreatitis Condition: Stable Hospital course: 47 YO Female with HTN, Chronic Pancreatitis, Nicotine Dependence, presents to ED for evaluation. Pt states that she has experienced Abdominal pain for the past 3 days with worsening symptoms over the past 2 days, as well as headache for the past 2 days. Pt states that abdominal pain is 10/10, diffuse, constant, worsened with eating, no alleviating factors. Pt acknowledges nausea and two episodes of vomiting. Pt also complains of 5/10 frontal headache. Pt denies fever, chills, CP, Palpitations, Trauma, BRBPR, hematemesis or recent ill contacts, or ingestion of food/water from new or different sources. Pt seen and evaluated in ED and found to have Acute Pancreatitis, Sepsis, and well as lactic acidosis. Pt admitted to medical floor. Patient admitted alcohol use daily quantified as a cooler. Patient was seen by GI, HIDA was unremarkable, she was treated with bowel rest and also insulin drip. Extensive counselling was given about alcohol use and she verablzied understanding. she was also treated with cystitis and now is tolerating diet and stable for discharge Sepsis Acute Cystitis Acute Pancreatitis secondary to alcohol abuse complicated by hypertriglyceridemia Hypertriglycerdemia Peritoneal irritation secondary to acute pancreatitis Tobacco dependance with Withdrawal Moderate Protein calorie malnutrition EtOH abuse' Hypokalemia Metabolic acidosis Headache- Disposition: DC-01 TO HOME OR SELFCARE Time spent for discharge: 35 mins Core Measure Documentation - Palliative Care Palliative Care/ Comfort Measures: Not Applicable - Core Measures Any of the following diagnoses?: none - VTE Discharge Requirements Deep Vein Thrombosis/Pulmonary Embolism Present on Admission: No Exam - Physical Exam Narrative exam: VITAL SIGNS: Reviewed. GENERAL: The patient appeared well nourished and normally developed. Vital signs as documented. HEAD: No signs of head trauma. EYES: Pupils are equal. Extraocular motions intact. EARS: Hearing grossly intact. MOUTH: Oropharynx is normal. NECK: No adenopathy, no JVD. CHEST: Chest with clear breath sounds bilaterally. No wheezes, rales, or rhonchi. CARDIAC: Regular rate and rhythm. S1 and S2, without murmurs, gallops, or rubs. VASCULAR: No Edema. Peripheral pulses normal and equal in all extremities. ABDOMEN: Soft, tender. No sign of distention. No rebound or guarding, and no masses palpated. Bowel Sounds normal. MUSCULOSKELETAL: Good range of motion of all major joints. Extremities without clubbing, cyanosis or edema. NEUROLOGIC EXAM: Alert and oriented x 3. No focal sensory or strength deficits. Speech normal. Follows commands. PSYCHIATRIC: Mood normal. SKIN: No rash or lesions. - Constitutional Vitals: Temp Pulse Resp BP Pulse Ox 98.7 F 82 20 150/90 99 12/18/17 06:14 12/18/17 10:47 12/18/17 06:14 12/18/17 10:47 12/18/17 06:14 Plan Diet: low fat Additional Instructions: must aovid etoh Follow up with: PRIMARY MD EDDIE [Primary Care Provider] - 3-5 Days NORRIS FOSTER MD [Staff Physician] - 7 Days Prescriptions: oxyCODONE /ACETAMINOPHEN [Percocet 5/325] 1 tab PO Q6HR PRN #14 tablet PRN Reason: Pain
--- NOTE | 2017-12-18 11:17 | Gastroenterology Progress Note ---
Assessment and Plan 1.acute pancreatitis -afebrile -WBC WNL -lipase now WNL -triglycerides 640 -CRP trending down (3.70) -CT showed acute pancreatitis -u/s revealed sludge in gallbladder -HIDA scan showed nonspecific delayed filling of GB -etiology- likely 2/2 ETOH abuse complicated by hypertriglyceridemia -clinically, patient is stable with abd pain improved and tolerating diet -continue supportive care -alcohol cessation encouraged -recommend repeat CT in 2-3 wks as outpatient -patient okay to be d/c per GI standpoint with follow up clinic appt -will sign off, please call if needed Subjective Date of service: 12/18/17 Principal diagnosis: acute pancreatitis Interval history: Patient w/o acute distress. Reports feeling much better today with abd pain significantly improved. No N/V. Tolerating diet. Objective - Constitutional Vitals: Temp Pulse Resp BP Pulse Ox 98.7 F 82 20 150/90 99 12/18/17 06:14 12/18/17 10:47 12/18/17 06:14 12/18/17 10:47 12/18/17 06:14 General appearance: no acute distress - Respiratory Respiratory: bilateral: CTA - Cardiovascular Rhythm: regular Heart Sounds: Present: S1 & S2 - Gastrointestinal General gastrointestinal: Present: soft, non-tender, non-distended, normal bowel sounds - Neurologic Neurological: alert and oriented x3 - Labs CBC & Chem 7: 12/18/17 04:49 12/17/17 05:50 Labs: Laboratory Results - last 24 hr 12/18/17 04:49 WBC 6.6 RBC 3.66 Hgb 10.4 Hct 31.7 MCV 87 MCH 29 MCHC 33 RDW 14.1 Plt Count 325
[2017-12-18] MEDS ORDERED: PROTONIX PO SCH (22:00)
== END 2017-12-18 12:00 | disposition home or self-care (01) | DRG 871 ==
LOC: ED 09:44 → 3A 15:45
PROVIDERS: ADMIT Internal Medicine; ATTEND Internal Medicine
DX: A41.9 Sepsis, unspecified organism (principal); K85.90 Acute pancreatitis without necrosis or infection, unspecified; K65.9 Peritonitis, unspecified; E87.2 Acidosis; F17.213 Nicotine dependence, cigarettes, with withdrawal; N30.00 Acute cystitis without hematuria; E44.0 Moderate protein-calorie malnutrition; K86.1 Other chronic pancreatitis; I10 Essential (primary) hypertension; F10.10 Alcohol abuse, uncomplicated; Y90.0 Blood alcohol level of less than 20 mg/100 ml; E78.1 Pure hyperglyceridemia; R51 Headache; Z68.31 Body mass index [BMI] 31.0-31.9, adult; Z82.49 Family history of ischemic heart disease and other diseases of the circulatory system; Z71.6 Tobacco abuse counseling; Z71.41 Alcohol abuse counseling and surveillance of alcoholic; Z79.899 Other long term (current) drug therapy; E87.6 Hypokalemia
CPT/HCPCS: 36415; 70450; 71045; 74177; 76700; 78226; 80048; 80053; 80061; 80074; 81001; 82140; 82270; 82962; 83690; 83880; 84478; 84484; 84703; 85007; 85025; 85027; 85610; 85730; 86140; 87040; 87086; 96361; 96374; 96375; 96376; 99406; A9270-GY; A9537; C9113; J1170; J1815; J2270; J2405; J2543; J3370; J3475; J3480; J7030; J7040; Q9967

== ENCOUNTER 2018-07-16 06:38 | Emergency (ER) | payer BC ==
[2018-07-16] MEDS ORDERED: TYLENOL ONE (06:47)
[2018-07-16 06:51] VITALS: BP 147/96
[2018-07-16] MEDS ORDERED: TYLENOL PO ONE (06:52)
[2018-07-16 07:19] LABS: HCG Qualitative,Urine Negative (Negative)
--- NOTE | 2018-07-16 07:52 | Emergency Department Report ---
Minor Respiratory - HPI Chief Complaint: Upper Respiratory Infection Stated Complaint: ASTON,CONGESTION,FAINT, FEVER Time Seen by Provider: 07/16/18 07:22 Minor Respiratory: Yes Able to Tolerate Fluids, Yes Cough, No Rhinorrhea, No Sore Throat, No Ear Pain, No Sick Contacts, No Hemoptysis, No Chest Pain, No Shortness of Breath, No Fever Other History: Patient is a 48-year-old female presents complaining of muscle aches, cough and fever for the past 2-3 days. ED Review of Systems ROS: Stated complaint: ASTON,CONGESTION,FAINT, FEVER Other details as noted in HPI Comment: All other systems reviewed and negative ED Past Medical Hx - Past Medical History Hx Hypertension: Yes Hx Congestive Heart Failure: No Hx Diabetes: No Hx Deep Vein Thrombosis: No Hx Pulmonary Embolism: No Hx GERD: No Hx Liver Disease: No Hx Renal Disease: No Hx Kidney Stones: No Hx Asthma: No Hx COPD: No Hx Tuberculosis: No Hx HIV: No Additional medical history: pancreatitis - Surgical History Hx Pacemaker: No Hx Internal Defibrillator: No Additional Surgical History: Left knee surgery. 08/2014 - Social History Smoking Status: Current Every Day Smoker Substance Use Type: None - Medications Home Medications: Home Medications Medication Instructions Recorded Confirmed Last Taken Type Atorvastatin Calcium [Lipitor] 80 mg PO DAILY 12/12/17 12/12/17 Unknown History Diltiazem HCl [Diltiazem 24Hr ER] 240 mg PO QDAY 12/12/17 12/12/17 Unknown History Fenofibrate [Tricor] 145 mg PO QDAY 12/12/17 12/12/17 Unknown History oxyCODONE /ACETAMINOPHEN [Percocet 1 tab PO Q6HR PRN #14 tablet 12/18/17 Unknown Rx 5/325] Azithromycin [Zithromax] 250 mg PO DAILY #1 pack 07/16/18 Unknown Rx Benzonatate [Tessalon Perles] 100 mg PO Q8HR #20 capsule 07/16/18 Unknown Rx Ibuprofen [Motrin] 800 mg PO Q8HR #30 tablet 07/16/18 Unknown Rx guaiFENesin [Robitussin] 100 mg PO TID #80 ml 07/16/18 Unknown Rx Minor Respiratory Exam - Exam General: Vital signs noted. No distress. Alert and acting appropriately. HEENT: Yes Moist Mucous Membranes, No Pharyngeal Erythema, No Pharyngeal Exudates, No Rhinorrhea, No Conjuctival Injection, No Frontal Tenderness, No Maxillary Tenderness Ear: Neither TM Bulge, Neither TM Erythema, Neither EAC Pain, Neither EAC Discharge Neck: Yes Supple, No Adenopathy Lungs: Yes Good Air Exchange, No Wheezes, No Ronchi, No Stridor, No Cough, No Labored Respirations, No Retractions, No Use of Accessory Muscles, No Other Abnormal Lung Sounds Heart: Yes Regular, No Murmur Abdomen: Yes Normal Bowel Sounds, No Tenderness, No Peritoneal Signs Skin: No Rash, No Edema Neurologic: Alert and oriented, no deficits. Musculoskeletal: Unremarkable. ED Course Vital Signs 07/16/18 06:46 Temperature 98.4 F Pulse Rate 104 H Respiratory 16 Rate Blood Pressure 147/96 O2 Sat by Pulse 100 Oximetry ED Medical Decision Making - Radiology Data Radiology results: report reviewed, image reviewed Fluoro Time In Minutes: ROUTINE CHEST, TWO VIEWS: HISTORY: Cough and congestion. Compared to 12/12/17. There is a very subtle airspace opacity in the right upper lobe best seen on the PA view. This could represent an early pneumonia. The left lung is clear. No pleural effusion or pneumothorax. Normal heart and mediastinal structures. Normal bony structures. IMPRESSION: Probable early right upper lobe pneumonia. Transcribed By: TTR Dictated By: DALI VÁSQUEZ JR, MD Electronically Authenticated By: DALI VÁSQUEZ JR, MD Signed Date/Time: 07/16/18 0807 - Medical Decision Making 48-year-old male presents with right lobe pneumonia. Discussed with patient symptomatic relief with [id number] medications for pain such as Motrin. She will be going home on some antibiotics Discussed increase fluids and diet intake. Discussed rest much needed. Discussed follow-up with her medications that she in 3-5 days. Patient verbally states she understands and will comply the following instructions and follow-up Vital signs stable. Patient is in no acute distress Critical care attestation.: If time is entered above; I have spent that time in minutes in the direct care of this critically ill patient, excluding procedure time. ED Disposition Clinical Impression: Upper respiratory infection, Pneumonia Disposition: DC-01 TO HOME OR SELFCARE Is pt being admited?: No Does the pt Need Aspirin: No Condition: Stable Instructions: Community-acquired Pneumonia (ED), Bacterial Pneumonia (ED) Additional Instructions: Make sure to follow up with the primary care physician as discussed. Take all your medications as you've been prescribed. If you have any worsening symptoms or develop new symptoms please return to ED immediately. Prescriptions: Azithromycin [Zithromax] 250 mg PO DAILY #1 pack Benzonatate [Tessalon Perles] 100 mg PO Q8HR #20 capsule guaiFENesin [Robitussin] 100 mg PO TID #80 ml Ibuprofen [Motrin] 800 mg PO Q8HR #30 tablet Referrals: ZHANE MAR MD [Primary Care Provider] - 3-5 Days Forms: Accompanied Note, Work/School Release Form(ED) Time of Disposition: 08:26
--- NOTE | 2018-07-16 08:11 | XRay Report ---
ROUTINE CHEST, TWO VIEWS: HISTORY: Cough and congestion. Compared to 12/12/17. There is a very subtle airspace opacity in the right upper lobe best seen on the PA view. This could represent an early pneumonia. The left lung is clear. No pleural effusion or pneumothorax. Normal heart and mediastinal structures. Normal bony structures. IMPRESSION: Probable early right upper lobe pneumonia.
[2018-07-16] MEDS ORDERED: ROBITUSSIN PO ONE (08:32)
[2018-07-16] MEDS ORDERED: TYLENOL/CODEINE PO ONE (08:32)
== END 2018-07-16 09:15 | disposition home or self-care (01) ==
LOC: ED 06:38
DX: J18.9 Pneumonia, unspecified organism (principal); J06.9 Acute upper respiratory infection, unspecified; I10 Essential (primary) hypertension; F17.200 Nicotine dependence, unspecified, uncomplicated
CPT/HCPCS: 71046; 81025

== ENCOUNTER 2018-11-11 11:12 | Emergency (ER) | payer BC ==
[2018-11-11 11:26] VITALS: BP 150/102
--- NOTE | 2018-11-11 11:26 | Event Note ---
ED Screening Note ED Screening Note: CC COUGH RECENT PNA NO HX ASTHMA QUIT SMOKING HX HTN ON NORVASC NO FEVER HERE REPORTS [facility] AT [facility]- DID TAKE HER MEDS THIS AM CURRENTLY ON MENSES NO ETOH NO DRUGS This initial assessment/diagnostic orders/clinical plan/treatment(s) is/are subject to change based on patients health status, clinical progression and re- assessment by fellow clinical providers in the ED. Further treatment and workup at subsequent clinical providers discretion. Patient/guardian urged not to elope from the ED as their condition may be serious if not clinically assessed and managed. Initial orders include:
--- NOTE | 2018-11-11 12:07 | XRay Report ---
ROUTINE CHEST, TWO VIEWS: HISTORY: Cough, recent pneumonia. The trachea, heart, mediastinal contour, lung carroll and bony thorax are unremarkable. Subtle right upper lobe opacity has resolved since 07/16/18. IMPRESSION: Unremarkable chest x-ray.
[2018-11-11 13:16] LABS: BUN/Creatinine Ratio 15; Blood Urea Nitrogen 9 mg/dL (7-17); Calcium 8.9 mg/dL (8.4-10.2); Hemolysis Index 90
[2018-11-11 14:27] LABS: Red Blood Count 3.85 M/mm3 (3.65-5.03)
[2018-11-11 14:28] LABS: Platelet Count 222 K/mm3 (140-440); Red Cell Distribution Width 14.5 % (13.2-15.2)
[2018-11-11 14:29] LABS: Hematocrit 34.7 % (30.3-42.9); Hemoglobin 11.6 gm/dl (10.1-14.3); Mean Corpuscular HGB Conc 34 % (30-34); Mean Corpuscular Volume 84 fl (79-97)
--- NOTE | 2018-11-11 14:31 | Emergency Department Report ---
- General Chief Complaint: Upper Respiratory Infection Stated Complaint: LUNG PROBLEMS Time Seen by Provider: 11/11/18 11:23 Source: patient Mode of arrival: Ambulatory Limitations: No Limitations - History of Present Illness Initial Comments: Patient is a 48-year-old female has a past medical history hypertension and smoking who is here complaining of cough. Patient states cough is productive of yellow sputum with blood streaks. Patient states feels as though her lungs are burning.. Patient states pain is 8 out of 10 in severity. She has mild sore throat as well. Patient denies any nausea vomiting diarrhea neck stiffness. - Related Data Home Medications Medication Instructions Recorded Confirmed Last Taken Atorvastatin Calcium [Lipitor] 80 mg PO DAILY 12/12/17 12/12/17 Unknown Fenofibrate [Tricor] 145 mg PO QDAY 12/12/17 12/12/17 Unknown dilTIAZem HCl [Diltiazem 24Hr ER 240 mg PO QDAY 12/12/17 12/12/17 Unknown (Cd)] Previous Rx's Medication Instructions Recorded Last Taken Type oxyCODONE /ACETAMINOPHEN [Percocet 1 tab PO Q6HR PRN #14 tablet 12/18/17 Unknown Rx 5/325] Azithromycin [Zithromax] 250 mg PO DAILY #1 pack 07/16/18 Unknown Rx Benzonatate [Tessalon Perles] 100 mg PO Q8HR #20 capsule 07/16/18 Unknown Rx Ibuprofen [Motrin] 800 mg PO Q8HR #30 tablet 07/16/18 Unknown Rx guaiFENesin [Robitussin] 100 mg PO TID #80 ml 07/16/18 Unknown Rx ALBUTEROL Inhaler (OR & NICU) 2 puff IH QID PRN #1 inhalation 11/11/18 Unknown Rx [ProAir HFA Inhaler] Amoxicillin/Potassium Clav 1 each PO BID #14 tablet 11/11/18 Unknown Rx [Augmentin 875-125 Tablet] Benzonatate [Tessalon Perles] 100 mg PO Q8HR #10 capsule 11/11/18 Unknown Rx predniSONE [Deltasone] 20 mg PO QDAY #5 tab 11/11/18 Unknown Rx Allergies Allergy/AdvReac Type Severity Reaction Status Date / Time No Known Allergies Allergy Unverified 09/27/14 14:52 ED Review of Systems ROS: Stated complaint: LUNG PROBLEMS Other details as noted in HPI Comment: All other systems reviewed and negative ED Past Medical Hx - Past Medical History Previous Medical History?: No Hx Hypertension: Yes Hx Congestive Heart Failure: No Hx Diabetes: No Hx Deep Vein Thrombosis: No Hx Pulmonary Embolism: No Hx GERD: No Hx Liver Disease: No Hx Renal Disease: No Hx Kidney Stones: No Hx Asthma: No Hx COPD: No Hx Tuberculosis: No Hx HIV: No Additional medical history: pancreatitis - Surgical History Past Surgical History?: Yes Hx Pacemaker: No Hx Internal Defibrillator: No Additional Surgical History: Left knee surgery. 08/2014 - Social History Smoking Status: Former Smoker Substance Use Type: None - Medications Home Medications: Home Medications Medication Instructions Recorded Confirmed Last Taken Type Atorvastatin Calcium [Lipitor] 80 mg PO DAILY 12/12/17 12/12/17 Unknown History Fenofibrate [Tricor] 145 mg PO QDAY 12/12/17 12/12/17 Unknown History dilTIAZem HCl [Diltiazem 24Hr ER 240 mg PO QDAY 12/12/17 12/12/17 Unknown History (Cd)] oxyCODONE /ACETAMINOPHEN [Percocet 1 tab PO Q6HR PRN #14 tablet 12/18/17 U nknown Rx 5/325] Azithromycin [Zithromax] 250 mg PO DAILY #1 pack 07/16/18 Unknown Rx Benzonatate [Tessalon Perles] 100 mg PO Q8HR #20 capsule 07/16/18 Unknown Rx Ibuprofen [Motrin] 800 mg PO Q8HR #30 tablet 07/16/18 Unknown Rx guaiFENesin [Robitussin] 100 mg PO TID #80 ml 07/16/18 Unknown Rx ALBUTEROL Inhaler (OR & NICU) 2 puff IH QID PRN #1 inhalation 11/11/18 Unknown Rx [ProAir HFA Inhaler] Amoxicillin/Potassium Clav 1 each PO BID #14 tablet 11/11/18 Unknown Rx [Augmentin 875-125 Tablet] Benzonatate [Tessalon Perles] 100 mg PO Q8HR #10 capsule 11/11/18 Unknown Rx predniSONE [Deltasone] 20 mg PO QDAY #5 tab 11/11/18 Unknown Rx ED Physical Exam - General Limitations: No Limitations General appearance: alert, in no apparent distress - Head Head exam: Present: atraumatic, normocephalic - Eye Eye exam: Present: normal appearance - ENT ENT exam: Present: mucous membranes moist - Neck Neck exam: Present: normal inspection - Respiratory Respiratory exam: Present: normal lung sounds bilaterally. Absent: respiratory distress, wheezes, rales, rhonchi - Cardiovascular Cardiovascular Exam: Present: regular rate, normal rhythm. Absent: systolic murmur, diastolic murmur, rubs, gallop - GI/Abdominal GI/Abdominal exam: Present: soft, normal bowel sounds. Absent: distended, tenderness, guarding, rebound - Extremities Exam Extremities exam: Present: normal inspection - Back Exam Back exam: Present: normal inspection - Neurological Exam Neurological exam: Present: alert, oriented X3 - Psychiatric Psychiatric exam: Present: normal affect, normal mood - Skin Skin exam: Present: warm, dry, intact, normal color. Absent: rash ED Course Vital Signs 11/11/18 11:24 Temperature 98.7 F Pulse Rate 76 Respiratory 18 Rate Blood Pressure 150/102 O2 Sat by Pulse 98 Oximetry ED Medical Decision Making - Lab Data Result diagrams: 11/11/18 12:32 - Radiology Data [facility] [address] [place] [address] XRay Report Signed Patient: RORY PETERSON MR#: [id number] 116 : 1970 Acct:[id number] Age/Sex: 48 / F ADM Date: 11/11/18 Loc: ED Attending Dr: Ordering Physician: FREDERICK THIBODEAUX Date of Service: 11/11/18 Procedure(s): XR chest routine 2V Accession Number(s): [id number] cc: FREDERICK THIBODEAUX Fluoro Time In Minutes: ROUTINE CHEST, TWO VIEWS: HISTORY: Cough, recent pneumonia. The trachea, heart, mediastinal contour, lung carroll and bony thorax are unremarkable. Subtle right upper lobe opacity has resolved since 07/16/18. IMPRESSION: Unremarkable chest x-ray. Transcribed By: TTR Dictated By: DALI VÁSQUEZ JR, MD Electronically Authenticated By: DALI VÁSQUEZ JR, MD Signed Date/Time: 11/11/18 1202 DD/ 1201 TD/TT: 11/11/18 1202 - Medical Decision Making Patient is a 48-year-old female who is presenting with a cough with bloody sputum. Patient's x-ray was negative for pneumonia. Her vital signs are within normal limits. Patient is likely with acute bronchitis. Patient because of her smoking history and duration symptoms will be started on antibiotics and the patient be given medications for symptomatic relief. Critical care attestation.: If time is entered above; I have spent that time in minutes in the direct care of this critically ill patient, excluding procedure time. ED Disposition Clinical Impression: Acute bronchitis Qualifiers: Bronchitis organism: unspecified organism Qualified Code(s): J20.9 - Acute bronchitis, unspecified Disposition: DC-01 TO HOME OR SELFCARE Is pt being admited?: No Does the pt Need Aspirin: No Condition: Stable Instructions: Acute Bronchitis (ED), How to Stop Smoking (ED) Referrals: JANAK MCFARLANE MD [Primary Care Provider] - 3-5 Days Time of Disposition: 14:30
== END 2018-11-11 14:41 | disposition home or self-care (01) ==
LOC: ED 11:12
DX: J20.9 Acute bronchitis, unspecified (principal); I10 Essential (primary) hypertension; Z98.890 Other specified postprocedural states; Z87.891 Personal history of nicotine dependence; Z79.899 Other long term (current) drug therapy
CPT/HCPCS: 36415; 71046; 80048; 85027